=== PATIENT | male | born 1955 | race Caucasian/White ===

== ENCOUNTER → 2017-07-11 14:17 | Outpatient (CLI) | payer BC, SELFPAY ==
[2017-07-24 08:16] LABS: Ami/Nortriptyline NEGATIVE MCG/ML (2); Codeine NEGATIVE MCG/ML (1); Demerol NEGATIVE MCG/ML (2); Hydrocodone NEGATIVE MCG/ML (2); Methadone NEGATIVE MCG/ML (2); Morphine NEGATIVE MCG/ML (0.5); Phenmetrazine NEGATIVE MCG/ML (1)
[2017-07-24 08:17] LABS: Emit Amphetamine NEGATIVE NG/ML (1000); Emit Cocaine NEGATIVE NG/ML (300); Emit Opiate NEGATIVE NG/ML (300); Tramadol NEGATIVE MCG/ML (1)
== END ==
PROVIDERS: Family Provider Family Medicine; PCP Family Medicine; Visit Provider Psychiatry & Neurology Psychiatry
DX: F11.20 Opioid dependence, uncomplicated (principal)
CPT/HCPCS: 80307

== ENCOUNTER 2017-08-02 17:55 | Emergency (ER) | payer BC, SELFPAY ==
[2017-08-02 17:57] VITALS: BP 133/74; PULSE 79; RESP 16; TEMP 36.8; O2SAT 92; BMI 30.5
--- NOTE | 2017-08-02 18:42 | RAD_ITS ---
STUDY: X-RAY - LEFT HAND REASON FOR EXAM: Male, 62 years old. Laceration TECHNIQUE: 3 view(s) of the hand. COMPARISON: None. FINDINGS: Normal radiocarpal articulation. Normal distal radioulnar joint. Normal visualized carpal bones. Normal carpal articulations Normal carpometacarpal articulation of the thumb. Normal second through fifth carpometacarpal joints. Normal metacarpi. Normal metacarpophalangeal joint of the thumb. Normal interphalangeal joint of the thumb. Normal proximal and distal phalanges of the thumb. Normal metacarpophalangeal joints of the second through fifth fingers. Normal proximal and distal interphalangeal joints of the second through fifth fingers. Injury to the base of the third proximal phalanx. Gauze and soft tissue injury dorsum of the hand. RAD/Hand Min 3 Views IMPRESSION: Fracture involving the base of the third proximal phalanx. Soft tissue injury dorsum of the hand at the level of the metacarpal phalangeal joints. Electronically Signed: Warner Zhu DO at 19:21 EDT , Service support ,
[2017-08-02] MEDS: Diphth,Pertuss(Acell),Tet Vac 0.5 ML Vial IM (19:06)
[2017-08-02 19:09] VITALS: BP 146/80; PULSE 69; RESP 15; O2SAT 99
[2017-08-02 19:40] VITALS: BP 141/88; PULSE 71; RESP 18; O2SAT 99
--- NOTE | 2017-08-02 19:41 | ED.RN ---
WET TO DRT DRESSING AND SPLINT APPLIED TO WOUND, REPORT CALLED TO [facility] ED, DAUGHTER IS TRANSPORTING.
--- NOTE | 2017-08-03 02:12 | ED.VISSUMM ---
- ER Visit Summary Date of Service: 08/03/17 Chief Complaint: Left hand injury History of Present Illness: The patient is a 62 M presenting secondary to a left hand injury. 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 Patient's tetanus status is unknown. He denies any other injuries. He is right-hand dominant. Physical Examination: Primary survey: Airway is patent, breath sounds equal bilateral, central peripheral pulses 2+ and symmetric, GCS 15 out of 15. Vitals within normal limits. Secondary survey: General: Well-nourished well-developed no acute distress Head: Normocephalic atraumatic Eyes: PERRLA, EOMI ENT: Atraumatic Neck: Nontender full range of motion, no step-offs noted Heart: Regular rate and rhythm no murmurs Lungs: Respirations nondistressed, lung sounds clear to auscultation bilaterally, chest nontender, normal chest excursion bilaterally Abdomen: Soft nontender nondistended normal bowel sounds no palpable abdominal masses Back: Nontender no step-offs noted Extremities: Examination of the patient's right hand shows a gaping laceration over the dorsum of the patient's hand coursing over the index and long digit metacarpals going out into the long digit proximal phalanx and going down over top of the patient's ring finger. Patient has complete loss of extensor mechanism of his index and long digits. Skin: Normal color no trauma Neuro: Alert and oriented ?4, GCS 15 out of 15, no lateralizing neurological deficits. Test Results: Hand x-ray shows open fracture of the proximal long phalanx Emergency Department Course and Treatment: Patient presented secondary to a hand injury. Primary and secondary surveys as noted above showed only injuries to the patient's left hand. A bulky wet dressing was placed over top of the patient's hand and he was placed in a volar resting splint. Arm was elevated, he did have good hemostasis. Patient's tetanus status was updated. Currently we do not have support from hand surgery at this facility, so the patient will be transferred to a trauma center. Patient chose [facility], will be transferred there by his daughter in private car. Disposition: Transfer Impression: 1. Left hand laceration with open proximal long digit phalanx fracture and extensor tendon lacerations of the index and long digits 2. Volar splint by ED physician Critical care time 35 minutes This note was generated with [employer] dictation software. It may contain incorrect words, spelling, and punctuation that were not noted in review of the chart prior to signing ED Disposition - Plan for ED Patient: Disposition: [facility] Chief Complaint: Wound Referrals: Mahendra Mendez MD [Primary Care Provider] -
--- NOTE | 2017-08-03 02:16 | ED.DCSUM_ITS ---
- ER Visit Summary Date of Service: 08/03/17 Chief Complaint: Left hand injury History of Present Illness: The patient is a 62 M presenting secondary to a left hand injury. 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 Patient's tetanus status is unknown. He denies any other injuries. He is right-hand dominant. Physical Examination: Primary survey: Airway is patent, breath sounds equal bilateral, central peripheral pulses 2+ and symmetric, GCS 15 out of 15. Vitals within normal limits. Secondary survey: General: Well-nourished well-developed no acute distress Head: Normocephalic atraumatic Eyes: PERRLA, EOMI ENT: Atraumatic Neck: Nontender full range of motion, no step-offs noted Heart: Regular rate and rhythm no murmurs Lungs: Respirations nondistressed, lung sounds clear to auscultation bilaterally , chest nontender, normal chest excursion bilaterally Abdomen: Soft nontender nondistended normal bowel sounds no palpable abdominal masses Back: Nontender no step-offs noted Extremities: Examination of the patient's right hand shows a gaping laceration over the dorsum of the patient's hand coursing over the index and long digit metacarpals going out into the long digit proximal phalanx and going down over top of the patient's ring finger. Patient has complete loss of extensor mechanism of his index and long digits. Skin: Normal color no trauma Neuro: Alert and oriented ?4, GCS 15 out of 15, no lateralizing neurological deficits. Test Results: Hand x-ray shows open fracture of the proximal long phalanx Emergency Department Course and Treatment: Patient presented secondary to a hand injury. Primary and secondary surveys as noted above showed only injuries to the patient's left hand. A bulky wet dressing was placed over top of the patient's hand and he was placed in a volar resting splint. Arm was elevated, he did have good hemostasis. Patient's tetanus status was updated. Currently we do not have support from hand surgery at this facility, so the patient will be transferred to a trauma center. Patient chose [facility], will be transferred there by his daughter in private car. Disposition: Transfer Impression: 1. Left hand laceration with open proximal long digit phalanx fracture and extensor tendon lacerations of the index and long digits 2. Volar splint by ED physician Critical care time 35 minutes This note was generated with [employer] dictation software. It may contain incorrect words, spelling, and punctuation that were not noted in review of the chart prior to signing ED Disposition - Plan for ED Patient: Disposition: [facility] Chief Complaint: Wound Referrals: Mahendra Mendez MD [Primary Care Provider] -
== END 2017-08-02 19:57 | disposition short-term general hospital (02) ==
LOC: ED 19:12
PROVIDERS: Emergency Provider Emergency Medicine; Family Provider Family Medicine; PCP Family Medicine
DX: S62.613B Displaced fracture of proximal phalanx of left middle finger, initial encounter for open fracture (principal); S66.321A Laceration of extensor muscle, fascia and tendon of left index finger at wrist and hand level, initial encounter; S66.323A Laceration of extensor muscle, fascia and tendon of left middle finger at wrist and hand level, initial encounter; S61.215A Laceration without foreign body of left ring finger without damage to nail, initial encounter; W31.2XXA Contact with powered woodworking and forming machines, initial encounter; Y93.89 Activity, other specified; Y92.9 Unspecified place or not applicable; Y99.9 Unspecified external cause status; Z23 Encounter for immunization; I25.10 Atherosclerotic heart disease of native coronary artery without angina pectoris; Z79.02 Long term (current) use of antithrombotics/antiplatelets; Z79.82 Long term (current) use of aspirin; Z79.899 Other long term (current) drug therapy
CPT/HCPCS: 73130; 90715; 99284

== ENCOUNTER → 2017-11-08 07:03 | Outpatient (CLI) | payer BC, SELFPAY ==
[2017-11-08 10:56] LABS: AST(SGOT) 18 U/L (15-37); Alanine Aminotransfer ALT/SGPT 23 U/L (16-61); Albumin, Serum 3.8 g/dL (3.2-5.0); Alkaline Phosphatase 64 U/L (45-117); Bilirubin, Direct 0.09 mg/dL (0.00-0.30); Cholesterol 90 mg/dL (200); Globulin 3.2 g/dL (2.2-4.2); High Density Lipoprotein 36 mg/dL; Triglycerides 67 mg/dL; Very Low Density Lipoprotein 13 mg/dL (5-40)
== END ==
PROVIDERS: Family Provider Family Medicine; PCP Family Medicine; Visit Provider Internal Medicine Cardiovascular Disease
DX: E78.5 Hyperlipidemia, unspecified (principal); Z79.899 Other long term (current) drug therapy
CPT/HCPCS: 36415; 80061; 80076

== ENCOUNTER → 2017-11-14 08:56 | Outpatient (CLI) | payer BC, SELFPAY ==
--- NOTE | 2017-11-14 09:01 | RAD_ITS ---
STUDY: X-RAY CHEST REASON FOR EXAM: Male, 62 years old. Noncardiac sternal chest pain. TECHNIQUE: PA and lateral views of the chest. COMPARISON: Comparison is made with prior study dated June 16, 2014. FINDINGS: Hyperinflation. Stable increased markings in the right middle lobe suggestive of scarring. Mild increased markings in the lingular segment of the left upper lobe as well. Scattered calcified old granulomatous disease. There is no demonstrated pleural abnormality. Normal size heart. Normal mediastinum and rigoberto. There is prominence of the pulmonary hilar arteries without peripheral pulmonary vascular congestion, suggesting pulmonary hypertension. Normal visualized aortic arch and descending thoracic aorta. There are mild degenerative changes of the visualized thoracic spine. Normal visualized ribs, clavicles, and shoulders. There is no demonstrated abnormality of the visualized soft tissue structures of the upper abdomen. RAD/Chest PA and Lateral IMPRESSION: Hyperinflation. Prominence of the pulmonary bilaterally. Stable mild increased interstitial markings suggestive bibasilar scarring. Electronically Signed: Keshav Roy MD at 9:24 EDT Tel [phone], Service support ,
== END ==
PROVIDERS: Family Provider Family Medicine; PCP Family Medicine; Visit Provider Family Medicine
DX: R07.89 Other chest pain (principal)
CPT/HCPCS: 71046

== ENCOUNTER → 2017-12-27 07:29 | Outpatient (CLI) | payer BC, SELFPAY ==
[2017-12-27 10:32] LABS: Hematocrit 41.5 % (40-54); Hemoglobin 14.1 g/dl (13.0-16.5); Mean Corpuscular Hgb 31.7 pg (27.0-32.0); Mean Corpuscular Volume 93.3 fL (80-94); Mean Platelet Vol. 10.7 fl (6.2-12.0); Platelet Count 150 K/mm3 (150-450); RBC Distribution Width CV 12.3 % (11.6-14.6); RBC Distribution Width SD 41.3 fl (35.1-43.9); Red Blood Count 4.45 M/mm3 (4.6-6.2); White Blood Count 9.9 K/mm3 (4.4-11.0)
[2017-12-27 10:35] LABS: Scan Indicated on CBC? Y/N NO
[2017-12-27 10:47] LABS: ALB/GLOB Ratio 1.1 RATIO (0.9-2.4); AST(SGOT) 21 U/L (15-37); Alanine Aminotransfer ALT/SGPT 22 U/L (16-61); Albumin, Serum 3.6 g/dL (3.2-5.0); Alkaline Phosphatase 84 U/L (45-117); Anion Gap 9 (5-15); BUN 10 mg/dL (7-18); BUN/Creat Ratio 10.8 RATIO (10-20); CRP 5.73 mg/L (0.0-3.0); Chloride 103 mmol/L (98-107); Creatinine, Serum 0.93 mg/dL (0.70-1.30); EST Glomerular Filtration Rate 87 mL/min (>60); Est Glom Filt Rate - Afr Amer 105 mL/min (>60); Globulin 3.4 g/dL (2.2-4.2); Glucose 109 mg/dL (74-106); Lipase 77 U/L (73-393); Potassium 4.1 mmol/L (3.5-5.1); Sodium Level 139 mmol/L (136-145)
== END ==
PROVIDERS: Family Provider Family Medicine; PCP Family Medicine; Visit Provider Internal Medicine Gastroenterology
DX: R10.9 Unspecified abdominal pain (principal)
CPT/HCPCS: 36415; 80053; 83690; 85027; 86140

== ENCOUNTER → 2017-12-28 14:55 | Outpatient (CLI) | payer BC, SELFPAY ==
--- NOTE | 2017-12-28 15:00 | CT_ITS ---
STUDY: CT ABDOMEN AND PELVIS WITH CONTRAST REASON FOR EXAM: Male, 62 years old. Abdominal pain RADIATION DOSAGE (If Supplied By Facility): CTDIvol = ( 17.36 ) mGy, DLP = ( 1119.43 ) mGycm TECHNIQUE: Transaxial images were obtained from the dome of the diaphragm to the symphysis pubis without oral contrast. 100 ml of Isovue 300 contrast was administered. Sagittal and coronal images were reconstructed. Individualized dose optimization techniques were used for this CT. COMPARISON: None. FINDINGS: The visualized lung bases are clear. The visualized portions of the heart and pericardium are within normal limits. There are no calcified gallstones present. The liver is within normal limits. There are no suspicious hepatic lesions. The spleen is normal in size. There is a 2.9 x 2.9 x 2.7 cm hypodense mass in the tail of the pancreas which is highly suspicious for neoplasm. There is adjacent periportal lymphadenopathy. The right adrenal gland is within normal limits. There is ill-defined thickening of the left adrenal gland which may be due to involvement by the adjacent pancreatic mass. There are no renal or ureteral stones. There is no hydronephrosis. There are no focal renal lesions. Normal visualized stomach. There is no bowel obstruction or inflammation. There is a large amount stool in the colon, consistent with constipation. The appendix is not visualized, but there are no findings to suggest acute appendicitis. The aorta is normal in caliber. There is no abdominal or pelvic free air, free fluid or fluid collection. There are no destructive osseous lesions. There are postsurgical changes from posterior fusion of L5/S1. CT/Abdomen/Pelvis WITH Contrast IMPRESSION: 2.9 x 2.9 x 2.7 cm mass in the tail of the pancreas with adjacent periportal lymphadenopathy. This is highly suspicious for neoplasm. Ill-defined thickening of the left adrenal gland which may be due to neoplastic involvement by the adjacent pancreatic mass. No bowel obstruction or inflammation. Constipation. Electronically Signed: Claude New, at 16:01 EDT Tel , Service support ,
== END ==
PROVIDERS: Family Provider Family Medicine; PCP Family Medicine; Visit Provider Family Medicine
DX: R10.9 Unspecified abdominal pain (principal)
CPT/HCPCS: 74177; Q9967

== ENCOUNTER 2018-02-05 09:42 | Emergency (ER) | payer BC, SELFPAY ==
[2018-02-05 09:43] VITALS: BP 125/73; PULSE 67; RESP 14; TEMP 36.9; O2SAT 100; BMI 28.1
--- NOTE | 2018-02-05 09:58 | ED.VISSUMM ---
- ER Visit Summary Date of Service: 02/05/18 Chief Complaint: Abdominal pain History of Present Illness: The patient is a 62 M with midepigastric abdominal pain. The patient has a recent diagnosis of pancreatic cancer. He did have biopsy but no other abdominal surgery. He states that he started chemo on Monday. by , he began to have some diffuse cramping in his midepigastric area. Over the weekend, the pain is gotten worse. He has had nausea with a few bouts of emesis. He states he is also been constipated. He denies any fevers or chills. The patient is on methadone for his pain, feels like it is not helping. He states he just has no appetite. Pain does not radiate to his back. He denies any dysuria. He has had no cough or shortness of breath. Physical Examination: Vital signs reviewed General: Well-nourished, well-developed Head: Normocephalic, atraumatic Eyes: Pupils equal and reactive, extraocular muscles intact Neck, supple, no lymphadenopathy Heart: Regular rate and rhythm Respiratory: No distress, clear bilaterally Abdomen: Soft, mildly tender in the midepigastric area without rebound or guarding, nondistended, no peritoneal signs Back: Nontender Extremities: Nontender, no edema, no cords Skin: Normal color no rash Neuro: Alert and oriented, no focal or lateralizing deficits Test Results: [] Emergency Department Course and Treatment: The patient presents with increasing abdominal pain status post chemotherapy. Most of his pain was in his midepigastric area. He had no rebound or guarding. IV fluids were given through his port. Screening labs were obtained were relatively unremarkable. The patient is not neutropenic. His LFTs and electrolytes are within normal limits. With analgesics and antiemetics he did have improvement. The patient was observed for 3 hours. He continues to rest comfortably. Is able to drink without issue. At this time, I do for the patient is safe for discharge. He was counseled on concerning symptoms and symptoms return to the emergency department for. I did go over lab work with family at the bedside. He will be discharged to follow-up with oncology or return with any worsening symptoms. Treatment Plan: [] Disposition: Discharge Impression: 1. Epigastric abdominal pain with history of pancreatic cancer 2. Dehydration This note was generated with Dragon dictation software. It may contain incorrect words, spelling, and punctuation that were not noted in review of the chart prior to signing ED Disposition - Plan for ED Patient: Chief Complaint: Abd Pain Instructions: ED Abdominal Pain Unkn Cause Prescriptions: Ondansetron [Zofran Odt] 4 mg PO Q8H PRN PRN #10 tab PRN Reason: Nausea Referrals: Mahendra Mendez MD [Primary Care Provider] -
[2018-02-05 10:29] LABS: Absolute Lymphocyte Count 3.86 X10^3/ul (0.83-4.51); Absolute Neutrophil Count 4.2 X10^3/uL (2.0-7.7); Basophil# 0.01 X10^3/uL; Basophil% 0.1 % (0-1); Eosinophil# 0.02 X10^3/uL; Eosinophils% 0.2 % (0-5); Hematocrit 38.8 % (40-54); Hemoglobin 13.1 g/dl (13.0-16.5); Lymphocyte # 3.86 X10^3/ul (4.0); Lymphocyte % 46.8 % (19-41); Mean Corp Hgb Conc 33.8 g/gl (32-36); Mean Corpuscular Hgb 30.5 pg (27.0-32.0); Mean Corpuscular Volume 90.4 fL (80-94); Mean Platelet Vol. 9.8 fl (6.2-12.0); Monocyte# 0.11 X10^3/uL; Monocyte% 1.3 % (0-10); Neutrophil # 4.24 X10^3/uL (2.7-7.7); Neutrophil % 51.5 % (47-70); Platelet Count 119 K/mm3 (150-450); RBC Distribution Width CV 12.3 % (11.6-14.6); RBC Distribution Width SD 40.5 fl (35.1-43.9); Red Blood Count 4.29 M/mm3 (4.6-6.2); White Blood Count 8.3 K/mm3 (4.4-11.0)
[2018-02-05] MEDS: HYDROmorphone 1 MG/ML Syringe IV ×2 (10:35→11:14)
[2018-02-05] MEDS: 0.9% Normal Saline 1,000 ML 1000 ML IV (10:35)
[2018-02-05] MEDS: Ondansetron 4 MG/2 ML Vial IV (10:35)
[2018-02-05 10:38] LABS: POSITIVE COUNT NO; POSITIVE DIFFERENTIAL NO; POSITIVE MORPHOLOGY NO
[2018-02-05 10:44] LABS: ALB/GLOB Ratio 0.7 RATIO (0.9-2.4); AST(SGOT) 13 U/L (15-37); Alanine Aminotransfer ALT/SGPT 18 U/L (16-61); Albumin, Serum 2.9 g/dL (3.2-5.0); Alkaline Phosphatase 85 U/L (45-117); Anion Gap 7 (5-15); BUN 16 mg/dL (7-18); BUN/Creat Ratio 21.8 RATIO (10-20); Calcium,Total 9.1 mg/dL (8.5-10.1); Chloride 99 mmol/L (98-107); Creatinine, Serum 0.73 mg/dL (0.70-1.30); EST Glomerular Filtration Rate 114 mL/min (>60); Est Glom Filt Rate - Afr Amer 138 mL/min (>60); Estimated Creatinine Clearance 108.88 ml/min; Globulin 4.1 g/dL (2.2-4.2); Glucose 96 mg/dL (74-106); Lipase 180 U/L (73-393); Sodium Level 134 mmol/L (136-145)
[2018-02-05] MEDS: LORazepam 2 MG/ML Syringe 1 MG IV (11:23)
[2018-02-05 13:30] VITALS: BP 134/88; PULSE 76; RESP 18; O2SAT 99
[2018-02-05 14:00] LABS: Color, Urine Yellow (Yellow); Glucose, Dipstick Normal (Normal); Leukocyte Esterase-Dipstick 25 /ul (Negative); Nitrite-Dipstick Negative (Negative); Occult Blood-Urine 10 /ul (Negative); Protein-Dipstick 15 mg/dl (Negative); Specific Gravity, Urine 1.015 (1.002-1.030); Urine Bilirubin Dipstick Negative (Negative); Urine Clarity Sl. Cloudy (Clear); Urine Urobilinogen 1 mg/dl (Normal)
[2018-02-05 14:03] LABS: Ketone-Dipstick 150 mg/dl (Negative)
[2018-02-05 14:13] LABS: Bacteria 1+ /hpf (None Seen); Mucous, Urine 2+ /hpf (<or=2+); Red Blood Cells-Urine 0-5 SEEN /hpf (0-5); Squamous Epithelial Cells - UA 0-5 SEEN /hpf (0-5); White Blood Cells 0-5 SEEN /hpf (0-5)
== END 2018-02-05 13:32 | disposition home or self-care (01) ==
PROVIDERS: Emergency Provider Emergency Medicine; Family Provider Family Medicine; PCP Family Medicine
DX: R10.13 Epigastric pain (principal); E86.0 Dehydration; C25.9 Malignant neoplasm of pancreas, unspecified; R11.2 Nausea with vomiting, unspecified; K59.00 Constipation, unspecified; Z79.899 Other long term (current) drug therapy; Z79.891 Long term (current) use of opiate analgesic
CPT/HCPCS: 80053; 81001; 83690; 85025; 96361; 96374; 96375; 96376; 99282; J7030; A4216; J2405

== ENCOUNTER 2018-02-07 10:10 | Inpatient (IN) | payer BC, SELFPAY ==
[2018-02-07 10:11] VITALS: BP 126/73; PULSE 80; RESP 16; TEMP 36.9; O2SAT 97; BMI 28.1
--- NOTE | 2018-02-07 11:29 | CT_ITS ---
STUDY: CT ABDOMEN AND PELVIS WITHOUT CONTRAST REASON FOR EXAM: Male, 62 years old. Nausea and vomiting. History of pancreatic carcinoma with alcohol and substance abuse. RADIATION DOSAGE (If Supplied By Facility): CTDIvol = ( 8.99 ) mGy, DLP = ( 460.56 ) mGycm TECHNIQUE: Transaxial images were obtained from the dome of the diaphragm to the symphysis pubis without oral contrast, and without intravenous contrast. Sagittal and coronal images were reconstructed. Individualized dose optimization techniques were used for this CT. COMPARISON: Comparison is made with prior study dated December 28, 2017. FINDINGS: Mild degree of the increased markings in the anterior aspect of the lingular segment of the left upper lobe. This most likely scarring. This is unchanged. Coronary artery calcification. Normal liver. The right hemicolon is anterior to the liver. This is a normal variant. Mildly distended gallbladder. Questionable sludge or tiny gallstones in the gallbladder lumen. Mild splenomegaly. There is a 7.3 cm x 7.6 cm x 6.8 cm predominantly cystic mass in the left upper quadrant in the region of the splenic hilum. This most likely represents a possible mass or pseudocyst arising from the pancreas. Inhomogeneous mass in the body of the pancreas essentially unchanged as compared to prior study. There are several small rounded soft tissue densities in the anterior aspect of the pancreatic fat suggestive of possible adenopathy. Normal bilateral adrenal glands. Normal right kidney. Normal left kidney. Normal visualized stomach. Normal small intestine. Moderate amount of fecal material is seen in the colon. The appendix is visualized and appears normal. There is diffuse atherosclerotic calcification of the abdominal aorta, without a demonstrated aneurysm. Normal inferior vena cava. There is borderline retroperitoneal lymphadenopathy with enlarged nodes no greater than 10mm in the short axis diameter. Normal urinary bladder. Normal abdominal wall. The patient is status post laminectomy at the L5-S1 level with interpedicular screw fixation. Stable anterolisthesis of L5 on S1. CT/Abdomen/Pelvis without Cont IMPRESSION: 7.3 cm x 7.6 cm x 6.8 cm predominantly cystic mass in the left upper quadrant most likely arising from the tail of the pancreas. Stable appearance of the soft tissue mass in the body of the pancreas. Questionable peripancreatic lymph nodes. Electronically Signed: Keshav Roy MD at 13:47 EDT Tel [phone], Service support ,
[2018-02-07 11:30] LABS: Absolute Lymphocyte Count 5.56 X10^3/ul (0.83-4.51); Absolute Neutrophil Count 4.5 X10^3/uL (2.0-7.7); Basophil# 0.01 X10^3/uL; Basophil% 0.1 % (0-1); Eosinophil# 0.07 X10^3/uL; Eosinophils% 0.7 % (0-5); Hematocrit 39.2 % (40-54); Hemoglobin 13.3 g/dl (13.0-16.5); Lymphocyte # 5.56 X10^3/ul (4.0); Lymphocyte % 53.4 % (19-41); Mean Corp Hgb Conc 33.9 g/gl (32-36); Mean Corpuscular Hgb 30.3 pg (27.0-32.0); Mean Corpuscular Volume 89.3 fL (80-94); Monocyte# 0.28 X10^3/uL; Monocyte% 2.7 % (0-10); Neutrophil % 43.1 % (47-70); Platelet Count 116 K/mm3 (150-450); RBC Distribution Width CV 12.2 % (11.6-14.6); RBC Distribution Width SD 39.4 fl (35.1-43.9); Red Blood Count 4.39 M/mm3 (4.6-6.2); White Blood Count 10.4 K/mm3 (4.4-11.0)
[2018-02-07] MEDS: 0.9% Normal Saline 1,000 ML 1000 ML IV (11:30)
[2018-02-07] MEDS: proMETHazine 25 MG/ML Syringe 12.5 MG IV (11:30)
[2018-02-07] MEDS: HYDROmorphone 1 MG/ML Syringe IV ×6 (11:30→22:34)
[2018-02-07 11:31] LABS: Differential Indicated SCAN CRITERIA MET; POSITIVE COUNT NO; POSITIVE DIFFERENTIAL YES; POSITIVE MORPHOLOGY NO
[2018-02-07 11:41] LABS: Lactic Acid 0.9 mmol/L (0.4-2.0)
[2018-02-07 11:44] LABS: ALB/GLOB Ratio 0.7 RATIO (0.9-2.4); AST(SGOT) 15 U/L (15-37); Alanine Aminotransfer ALT/SGPT 19 U/L (16-61); Albumin, Serum 2.9 g/dL (3.2-5.0); Alkaline Phosphatase 86 U/L (45-117); Anion Gap 9 (5-15); BUN 18 mg/dL (7-18); BUN/Creat Ratio 27.1 RATIO (10-20); Calcium,Total 9.2 mg/dL (8.5-10.1); Chloride 96 mmol/L (98-107); Creatinine, Serum 0.66 mg/dL (0.70-1.30); EST Glomerular Filtration Rate 128 mL/min (>60); Est Glom Filt Rate - Afr Amer 155 mL/min (>60); Estimated Creatinine Clearance 120.43 ml/min; Globulin 4.3 g/dL (2.2-4.2); Glucose 106 mg/dL (74-106); Lipase 278 U/L (73-393); Potassium 3.7 mmol/L (3.5-5.1); Protein, Total 7.2 g/dL (6.4-8.2); Sodium Level 133 mmol/L (136-145)
[2018-02-07] MEDS: 0.9% Normal Saline 1,000 ML 999 ML IV (12:35)
[2018-02-07 12:37] VITALS: BP 146/85; PULSE 79; RESP 16; O2SAT 97
[2018-02-07 12:53] LABS: Bacteria 0 SEEN /hpf (None Seen); Mucous, Urine 0 SEEN /hpf (<or=2+); Red Blood Cells-Urine 0 SEEN /hpf (0-5)
[2018-02-07 13:00] LABS: Color, Urine Yellow (Yellow); Glucose, Dipstick Normal (Normal); Leukocyte Esterase-Dipstick 25 /ul (Negative); Nitrite-Dipstick Negative (Negative); Occult Blood-Urine 25 /ul (Negative); Protein-Dipstick 15 mg/dl (Negative); Specific Gravity, Urine 1.015 (1.002-1.030); Urine Bilirubin Dipstick Negative (Negative); Urine Clarity Sl. Cloudy (Clear); Urine Urobilinogen 1 mg/dl (Normal)
[2018-02-07 13:06] LABS: Ketone-Dipstick 150 mg/dl (Negative)
[2018-02-07 13:15] LABS: Squamous Epithelial Cells - UA 0-5 SEEN /hpf (0-5); White Blood Cells 0-5 SEEN /hpf (0-5)
--- NOTE | 2018-02-07 14:13 | NURSING ---
MED SURG ABD PAIN, N/V/CA PANCREATITIS RANDAL
--- NOTE | 2018-02-07 14:13 | ED.VISSUMM ---
- ER Visit Summary Date of Service: 02/07/18 Chief Complaint: [Nominal pain with vomiting] History of Present Illness: The patient is a 62 M [presents the emergency department complaint of abdominal pain. Patient states he has not had a good bowel movement in over 2 weeks. Patient is currently being treated for pancreatic cancer and his last chemotherapy was about a week ago. Patient states that every time he tries to eat or drink anything he gets nauseated and vomits. Patient has not eaten or drank much in the last week. Patient generally feels weak and uncomfortable. Denies any fevers. He denies urinary symptoms.] Patient is tried lactulose at home. Patient did see Dr. Childs yesterday and had a nerve block which helped for a short time with his pain. Physical Examination: [HEENT-PERRLA, EOMI. Cranial nerves II through XII grossly intact. TMs clear. Mucous membranes moist. No adenopathy. Cardiovascular-regular rate and rhythm without murmur or ectopy Lungs-clear to auscultation, chest wall stable without crepitus or subcu emphysema Abdomen-normoactive bowel sounds, soft. Patient has diffuse tenderness palpation. There is guarding but no rebound or rigidity. Extremities-intact ?4, normal range of motion, normal pulses, atraumatic] Test Results: [CBC with differential showed a white count of 10.4, hemoglobin 13, hematocrit 39, platelets 116. Chemistries unremarkable. LFTs were normal. Lipase was 278. Urinalysis showed [address] ketones. [address] was 0[address]. [address] scan of the abdomen and pelvis showed a suspected pancreatic pseudocyst and a pancreatic mass with moderate amount of stool throughout the colon.] Emergency Department Course and Treatment: [Patient was medicated with Dilaudid and Zofran. Patient was given 2 L of normal saline. Patient continues to complain of pain.] Treatment Plan: [Admit for IV hydration as well as pain control. Patient will need bowel prep to help him move his bowels..] Disposition: [Admit] Impression: [Intractable abdominal pain Pancreatic cancer Dehydration Constipation] This note was generated with [employer] dictation software. It may contain incorrect words, spelling, and punctuation that were not noted in review of the chart prior to signing ED Disposition - Plan for ED Patient: Chief Complaint: Nausea/Vomiting
--- NOTE | 2018-02-07 14:16 | ED.DCSUM_ITS ---
- ER Visit Summary Date of Service: 02/07/18 Chief Complaint: [Nominal pain with vomiting] History of Present Illness: The patient is a 62 M [presents the emergency department complaint of abdominal pain. Patient states he has not had a good bowel movement in over 2 weeks. Patient is currently being treated for pancreatic cancer and his last chemotherapy was about a week ago. Patient states that every time he tries to eat or drink anything he gets nauseated and vomits. Patient has not eaten or drank much in the last week. Patient generally feels weak and uncomfortable. Denies any fevers. He denies urinary symptoms.] Patient is tried lactulose at home. Patient did see Dr. Childs yesterday and had a nerve block which helped for a short time with his pain. Physical Examination: [HEENT-PERRLA, EOMI. Cranial nerves II through XII grossly intact. TMs clear. Mucous membranes moist. No adenopathy. Cardiovascular-regular rate and rhythm without murmur or ectopy Lungs-clear to auscultation, chest wall stable without crepitus or subcu emphysema Abdomen-normoactive bowel sounds, soft. Patient has diffuse tenderness palpation. There is guarding but no rebound or rigidity. Extremities-intact ?4, normal range of motion, normal pulses, atraumatic] Test Results: [CBC with differential showed a white count of 10.4, hemoglobin 13 , hematocrit 39, platelets 116. Chemistries unremarkable. LFTs were normal. Lipase was 278. Urinalysis showed 150 ketones. [address]actate was 0.[address]. [address] scan of the abdomen and pelvis showed a suspected pancreatic pseudocyst and a pancreatic mass with moderate amount of stool throughout the colon.] Emergency Department Course and Treatment: [Patient was medicated with Dilaudid and Zofran. Patient was given 2 L of normal saline. Patient continues to complain of pain.] Treatment Plan: [Admit for IV hydration as well as pain control. Patient will need bowel prep to help him move his bowels..] Disposition: [Admit] Impression: [Intractable abdominal pain Pancreatic cancer Dehydration Constipation] This note was generated with [employer] dictation software. It may contain incorrect words, spelling, and punctuation that were not noted in review of the chart prior to signing ED Disposition - Plan for ED Patient: Chief Complaint: Nausea/Vomiting
--- NOTE | 2018-02-07 14:30 | PCM.HP.STD ---
Problem List (1) Cancer of pancreas Status: Chronic (2) Pseudopancreatic cyst Status: Acute (3) Hypertension Status: Chronic Qualifiers: Hypertension type: essential hypertension Qualified Code(s): I10 - Essential (primary) hypertension (4) Presence of stent in coronary artery Status: Chronic Comment: PTCA/EDU of the prox LCX 07/07/12 (5) Hyperlipidemia Status: Chronic Qualifiers: Hyperlipidemia type: unspecified Qualified Code(s): E78.5 - Hyperlipidemia, unspecified (6) H/O percutaneous transluminal coronary angioplasty Status: Chronic Comment: PTCA/EDU of the prox LCX 07/07/12 (7) Atherosclerotic heart disease of [place] coronary artery without angina pectoris Status: Chronic Qualifiers: Habematolel vs. transplanted heart: [place] heart Qualified Code(s): I25.10 - Atherosclerotic heart disease of [place] coronary artery without angina pectoris Comment: PTCA/EDU of the prox LCX 07/07/12 (8) Severe abdominal pain; ca pancreatic Status: Acute (9) Chemotherapeutic side effect Status: Acute History of Present Illness Date of Admission: 02/07/18 Chief Complaint: Abdominal pain, nausea and vomiting for about 1 week. The patient is a 62 year old M with recent diagnosis of CA pancreas in May being followed by Dr. Falcon came to ER with severe midepigastric abdominal pain acid with nausea and vomiting for about 1 week. Prior to that, patient had chemo last Monday and his abdominal pain started getting worse since . He came to ER on 02/05/2018 and was sent home after 3 hours of observation and IV fluid rehydration. Patient also did not move his bowel or about 10 days. Denies fever, chills, chest symptoms including shortness of breath, chest pressure or palpitation. He had celiac nerve block by Dr. Yoder recently last few days. In ED, CT abdomen was done and shows 7.3 x 7.6 x 6.8 cm cystic mass in left upper quadrant arising from tail of pancreas suspicion of pseudopancreatic cyst with questionable peripancreatic lymph nodes. Initial blood work is remarkable platelet count 116,000, hyponatremia and hypochloremia. UA is negative. [] Past Medical History Past Medical History (Chronic Problems): Chronic Problems (Last Updated 11/10/17 @ 07:31 by Pennie Espinoza) Cancer of pancreas (Chronic) Hypertension (Chronic) Presence of stent in coronary artery (Chronic ~07/07/12) PTCA/EDU of the prox LCX 07/07/12 Hyperlipidemia (Chronic) H/O percutaneous transluminal coronary angioplasty (Chronic) PTCA/EDU of the prox LCX 07/07/12 Atherosclerotic heart disease of [place] coronary artery without angina pectoris (Chronic) PTCA/EDU of the prox LCX 07/07/12 Medical History: Medical History (Last Updated 11/10/17 @ 07:31 by Pnenie Espinoza) Hypertension (Chronic) I10 Presence of stent in coronary artery (Chronic) Onset Date: ~07/07/12 Z95.5 PTCA/EDU of the prox LCX 07/07/12 Hyperlipidemia (Acute) E78.5 Atherosclerotic heart disease of [place] coronary artery without angina pectoris (Chronic) I25.10 PTCA/EDU of the prox LCX 07/07/12 Allergies No Known Allergies Allergy (Verified 02/07/18 10:13) Home Medications: Ambulatory Orders Medication Instructions Recorded lisinopril 5 mg tablet 5 mg PO QDAY 11/10/17 metoprolol tartrate 25 mg tablet 25 mg PO DAILY tab 11/10/17 pravastatin 80 mg tablet 80 mg PO QHS 11/10/17 testosterone 20.25 mg/1.25 gram 2 pump TOPICAL QAM 11/10/17 (1.62 %) transdermal gel pump venlafaxine ER 150 mg 300 mg PO QDAY 11/10/17 capsule,extended release 24 hr HYDROmorphone tablet [Dilaudid] 2 mg PO Q3H PRN PRN 02/05/18 Methadone HCl [(None)] 10 mg PO DAILY 02/05/18 Gabapentin [Neurontin] 400 mg PO BID 02/07/18 Haloperidol [Haldol] 1 mg PO Q8H PRN PRN 02/07/18 Lactulose 30 ml PO BID 02/07/18 Nitroglycerin [Nitrolingual [place]] 0.4 mg SL PRN PRN 02/07/18 Trazodone HCl 100 mg PO QHS 02/07/18 Surgical History: Surgical History (Last Updated 11/13/17 @ 10:37 by Joann Acsota) H/O percutaneous transluminal coronary angioplasty (Chronic) Z98.61 PTCA/EDU of the prox LCX 02/16/13 History of back surgery Z98.890 History of neck surgery Z98.890 Hx of hand surgery Z98.890 cut hand on band saw Smoking Status: Former smoker - *Family History Paternal Family History: Family History (Last Reviewed 11/13/17 @ 10:37 by Joann Acosta) Father Myocardial infarction, Onset Age: 49 CAD (coronary artery disease) Hx of CABG Mother Hypertension Uncle Myocardial infarction, Onset Age: 50 Brother Diabetes History Items: No pertinent history Review of Systems Constitutional: Reports: Weakness, Weight Change, Fatigue. Denies: Chills, Fever HEENT: Denies: Head Aches, Sinus Congestion, Sinus Drainage Cardiovascular: Denies: Chest Pain, Palpitations Respiratory: Denies: Cough, Shortness of breath at rest, Sputum production Gastrointestinal: Reports: Constipation, Nausea, Vomiting. Denies: Abdominal Pain, Hematemesis, Hematochezia, Melena Genitourinary: Denies: Dysuria Musculoskeletal: Denies: Joint Pain, Joint Tenderness Skin: Denies: Rash, Wounds Neurological: Denies: Numbness, Tingling, Focal weakness Psychiatric: Reports: Anxiety, Depression. Denies: Homicidal Ideations, Suicidal Ideations Hematologic/ Lymphatic: Denies: Easy Bruising, Easy Bleeding VTE Information - Inpt Only VTE Present on Admission: No VTE Mechan Device Prophylaxis: SCD's VTE Pharm Prophylaxis ordered?: Yes Patient Problems: Active and Suspected Problems (Last Updated 11/10/17 @ 07:31 by Pennie Espinoza) Pseudopancreatic cyst (Acute) Severe abdominal pain; ca pancreatic (Acute) Chemotherapeutic side effect (Acute) - Physical Exam General: Alert, Oriented x3, Cooperative HEENT: Atraumatic, PERRLA, EOMI, Normocephalic Oral: Dry Mucosa Neck: Supple, No JVD, Negative Carotid Bruits Lungs: Clear to auscultation, Normal air movement Cardiovascular: Regular rate, Normal S1, Normal S2, No murmurs Abdomen: Bowel Sounds Present, Soft, Hypoactive Bowel Sounds, Tender - Generalized severe tenderness present, predominantly upper abdomen Extremities: No edema, Capillary Refill Less than 3 Seconds Skin: No rashes, No breakdown Musculoskeletal: No Tenderness to Palpation of Joints or Extremities, Arthritic Changes, Muscle Wasting Neurological: Cranial nerves II-XII grossly intact Psych/Mental Status: Normal Affect, Appropriate Vital Signs Temp Pulse Resp BP Pulse Ox 98.5 F 79 16 146/85 H 97 02/07/18 10:11 02/07/18 12:37 02/07/18 12:37 02/07/18 12:37 02/07/18 12:37 Oxygen Delivery Method Room Air Weight: 202 lb Body Mass Index (BMI) 28.1 Laboratory Tests Past 24 Hrs 02/07/18 02/07/18 02/07/18 11:10 11:10 11:10 WBC 10.4 RBC 4.39 L Hgb 13.3 Hct 39.2 L MCV 89.3 MCH 30.3 MCHC 33.9 RDW 12.2 RDW Differential 39.4 Plt Count 116 L MPV 10.0 Immature Gran % (Auto) 0.000 Neut % (Auto) 43.1 L Lymph % (Auto) 53.4 H [place] % (Auto) 2.7 Eos % (Auto) 0.7 Baso % (Auto) 0.1 Absolute Neuts (auto) 4.5 Absolute Lymphs (auto) 5.56 H Total Counted Not Reportable Sodium 133 L Potassium 3.7 Chloride 96 L Carbon Dioxide 28.0 Anion Gap 9 BUN 18 Creatinine 0.66 L Estim Creat Clear Calc 120.43 Est GFR (MDRD) Af Amer 155 Est GFR (MDRD) Non-Af 128 BUN/Creatinine Ratio 27.1 H Glucose 106 Lactic Acid 0.9 Calcium 9.2 Total Bilirubin 0.60 AST 15 ALT 19 Alkaline Phosphatase 86 Total Protein 7.2 Albumin 2.9 L Globulin 4.3 H Albumin/Globulin Ratio 0.7 L Lipase 278 Urine Color Urine Clarity Urine pH Ur Specific [place] Urine Protein Urine Glucose (UA) Urine Ketones Urine Occult Blood Urine Nitrite Urine Bilirubin Urine Urobilinogen Ur Leukocyte Esterase Urine RBC Urine WBC Ur Squamous Epith Cells Urine Bacteria Urine Mucus 02/07/18 12:46 WBC RBC Hgb Hct MCV MCH MCHC RDW RDW Differential Plt Count MPV Immature Gran % (Auto) Neut % (Auto) Lymph % (Auto) [place] % (Auto) Eos % (Auto) Baso % (Auto) Absolute Neuts (auto) Absolute Lymphs (auto) Total Counted Sodium Potassium Chloride Carbon Dioxide Anion Gap BUN Creatinine Estim Creat Clear Calc Est GFR (MDRD) Af Amer Est GFR (MDRD) Non-Af BUN/Creatinine Ratio Glucose Lactic Acid Calcium Total Bilirubin AST ALT Alkaline Phosphatase Total Protein Albumin Globulin Albumin/Globulin Ratio Lipase Urine Color Yellow Urine Clarity Sl. Cloudy Urine pH 7.0 Ur Specific [place] 1.015 Urine Protein 15 H Urine Glucose (UA) Normal Urine Ketones 150 H Urine Occult Blood 25 H Urine Nitrite Negative Urine Bilirubin Negative Urine Urobilinogen 1 H Ur Leukocyte Esterase 25 H Urine RBC 0 SEEN Urine WBC 0-5 SEEN Ur Squamous Epith Cells 0-5 SEEN Urine Bacteria 0 SEEN Urine Mucus 0 SEEN Assessment/Plan All Active Problems (Last Updated 11/10/17 @ 07:31 by Pennie Espinoza) Pseudopancreatic cyst (Acute) Severe abdominal pain; ca pancreatic (Acute) Chemotherapeutic side effect (Acute) The patient is a 62 year old M with recent diagnosis of CA pancreas in May being followed by Dr. Falcon came to ER with severe midepigastric abdominal pain acid with nausea and vomiting for about 1 week. Prior to that, patient had chemo last Monday and his abdominal pain started getting worse since . He came to ER on 02/05/2018 and was sent home after 3 hours of observation and IV fluid rehydration. Patient also did not move his bowel or about 10 days. Denies fever, chills, chest symptoms including shortness of breath, chest pressure or palpitation. He had celiac nerve block by Dr. Yoder recently last few days. He lost 14 pounds in last 2 days. In ED, CT abdomen was done and shows 7.3 x 7.6 x 6.8 cm cystic mass in left upper quadrant arising from tail of pancreas suspicion of pseudopancreatic cyst with questionable peripancreatic lymph nodes. Initial blood work is remarkable platelet count 116,000, hyponatremia and hypochloremia. UA is negative. 1. Severe abdominal pain, nausea and vomiting and constipation most related secondary to chemotherapeutic side effect: Patient is being admitted on the regular MedSurg floor. Venous IV fluid rehydration with normal saline. Symptomatic management for nausea, vomiting and constipation. Dulcolax suppository and soapsuds enema. Pain control with IV Dilaudid. Continue patient home medication of methadone. Started on clear liquid diet and advance as per tolerated. 2. Recent diagnosis of CA pancreas complicated with severe abdominal pain and weight loss: Consult Dr. Falcon for further prognostication. 3. Coronary artery disease status post stent in proximal left circumflex in June 2012, hypertension, anxiety and depression and dyslipidemia: Home medication reconciliation done. Severe protein calorie malnutrition secondary to see a pancreas: Nutritional consult done. Patient on Ensure. DVT prophylaxis, moderate to severe risk in view of cancer pancreas: On Lovenox and bilateral SCDs Admission, labs and imaging and treatment plan was discussed with patient's and her daughter, Ms. Amin. This note was generated with [employer] dictation software. Every effort was made to ensure accuracy, however computerized obstetric assistant mistakes may persist. Clinical Impression(s) from Imaging Studies Abdomen/Pelvis CT 02/07/18 11:29 IMPRESSION: 7.3 cm x 7.6 cm x 6.8 cm predominantly cystic mass in the left upper quadrant most likely arising from the tail of the pancreas. Stable appearance of the soft tissue mass in the body of the pancreas. Questionable peripancreatic lymph nodes. Laboratory Results 02/07/18 11:10: WBC 10.4, RBC 4.39 L, Hgb 13.3, Hct 39.2 L, MCV 89.3, MCH 30.3, MCHC 33.9, RDW 12.2, RDW Differential 39.4, Plt Count 116 L, MPV 10.0, Immature Gran % (Auto) 0.000, Neut % (Auto) 43.1 L, Lymph % (Auto) 53.4 H, [place] % (Auto) 2.7, Eos % (Auto) 0.7, Baso % (Auto) 0.1, Absolute Neuts (auto) 4.5, Absolute Lymphs (auto) 5.56 H, Total Counted Not Reportable 02/07/18 11:10: Sodium 133 L, Potassium 3.7, Chloride 96 L, Carbon Dioxide 28.0, Anion Gap 9, BUN 18, Creatinine 0.66 L, Estim Creat Clear Calc 120.43, Est GFR (MDRD) Af Amer 155, Est GFR (MDRD) Non-Af 128, BUN/Creatinine Ratio 27.1 H, Glucose 106, Calcium 9.2, Total Bilirubin 0.60, AST 15, ALT 19, Alkaline Phosphatase 86, Total Protein 7.2, Albumin 2.9 L, Globulin 4.3 H, Albumin/Globulin Ratio 0.7 L, Lipase 278 02/07/18 11:10: Lactic Acid 0.9 02/07/18 12:46: Urine Color Yellow, Urine Clarity Sl. Cloudy, Urine pH 7.0, Ur Specific [place] 1.015, Urine Protein 15 H, Urine Glucose (UA) Normal, Urine Ketones 150 H, Urine Occult Blood 25 H, Urine Nitrite Negative, Urine Bilirubin Negative, Urine Urobilinogen 1 H, Ur Leukocyte Esterase 25 H, Urine RBC 0 SEEN, Urine WBC 0-5 SEEN, Ur Squamous Epith Cells 0-5 SEEN, Urine Bacteria 0 SEEN, Urine Mucus 0 SEEN [] Code Visit Inpatient E&M: 15960 Init Hosp L3
[2018-02-07 14:39] VITALS: BMI 26.2
[2018-02-07 15:20] VITALS: BP 138/73; PULSE 69; RESP 16; TEMP 37.3; O2SAT 95
[2018-02-07] MEDS: Ondansetron 4 MG/2 ML Vial 8 MG IV (15:23)
[2018-02-07] MEDS: 0.9% Normal Saline 1,000 ML 150 ML IV (15:36)
[2018-02-07 20:03] VITALS: BP 156/78; PULSE 67; RESP 18; TEMP 37; O2SAT 97
[2018-02-07] MEDS: LORazepam 2 MG/ML Syringe 1 MG IV ×2 (20:19→22:34)
[2018-02-08 05:04] VITALS: BP 153/87; PULSE 77; RESP 18; TEMP 36.8; O2SAT 97
[2018-02-08] MEDS: HYDROmorphone 1 MG/ML Syringe IV ×5 (05:28→20:50)
[2018-02-08] MEDS: LORazepam 2 MG/ML Syringe 1 MG IV ×4 (05:28→20:50)
[2018-02-08 05:47] LABS: Absolute Lymphocyte Count 4.93 X10^3/ul (0.83-4.51); Absolute Neutrophil Count 4.1 X10^3/uL (2.0-7.7); Basophil# 0.01 X10^3/uL; Basophil% 0.1 % (0-1); Eosinophil# 0.15 X10^3/uL; Eosinophils% 1.6 % (0-5); Hematocrit 35.8 % (40-54); Hemoglobin 12.4 g/dl (13.0-16.5); Lymphocyte # 4.93 X10^3/ul (4.0); Lymphocyte % 51.4 % (19-41); Mean Corp Hgb Conc 34.6 g/gl (32-36); Mean Corpuscular Hgb 31.1 pg (27.0-32.0); Mean Corpuscular Volume 89.7 fL (80-94); Mean Platelet Vol. 10.4 fl (6.2-12.0); Monocyte# 0.34 X10^3/uL; Monocyte% 3.5 % (0-10); Neutrophil # 4.13 X10^3/uL (2.7-7.7); Neutrophil % 43.1 % (47-70); Platelet Count 106 K/mm3 (150-450); RBC Distribution Width CV 11.8 % (11.6-14.6); RBC Distribution Width SD 38.6 fl (35.1-43.9); Red Blood Count 3.99 M/mm3 (4.6-6.2); White Blood Count 9.6 K/mm3 (4.4-11.0)
[2018-02-08 05:55] LABS: POSITIVE COUNT NO; POSITIVE DIFFERENTIAL NO; POSITIVE MORPHOLOGY NO
[2018-02-08 06:11] LABS: Anion Gap 9 (5-15); BUN 16 mg/dL (7-18); BUN/Creat Ratio 26.2 RATIO (10-20); Calcium,Total 8.9 mg/dL (8.5-10.1); Chloride 102 mmol/L (98-107); Creatinine, Serum 0.61 mg/dL (0.70-1.30); EST Glomerular Filtration Rate 141 mL/min (>60); Est Glom Filt Rate - Afr Amer 171 mL/min (>60); Glucose 84 mg/dL (74-106); Potassium 3.9 mmol/L (3.5-5.1); Sodium Level 137 mmol/L (136-145)
[2018-02-08 09:00] VITALS: BP 157/80; PULSE 77; RESP 16; TEMP 36.4; O2SAT 96
[2018-02-08] MEDS: 0.9% NaCl Peripheral Flush Adult/Peds IV ×3 (10:46→18:00)
[2018-02-08] MEDS: Bisacodyl 10 MG Suppository RECTAL (10:48)
[2018-02-08] MEDS: 0.9% Normal Saline 1,000 ML 125 ML IV ×2 (11:01→18:04)
--- NOTE | 2018-02-08 11:05 | PCA ---
melina/rn in with pt
--- NOTE | 2018-02-08 13:32 | NURSING ---
Addendum entered by Estephania Dominique 02/08/18 16:07: Dr. French notified of daughter Dhiraj's request. Dr. French asked what patient wants and accompanied this RN into room to discuss this with patient. No family was present at the time. Patient stated that he wants to keeps meds how they are ordered and not decrease dose. Notified that family is concerned that they believe he is sleeping too much. Pt denies and stated he wanted meds to be kept as they are. A short while later patient requested prn pain medication. This RN entered room and asked pt if he needed anything for anxiety or nausea. patient states that he wanted the same meds that he had this morning. He states they help him deal with the pain so that he can relax. This RN went to get Ativan. Upon return to room patient's in room and had daughter dhiraj on phone. She gave phone to patient per Dhiraj's request and stated that he was getting to much anxiety medication and that he needed to cut back. Patient rolled eyes and stated, yes, miss, yes, miss, whatever you say. Patient then asked if he would like the ordered 1mg or if he would like the 0.5mg. Patient stated, I guess I want the half dose. 0.5mg given per pt request. Family had been notified that order for ativan was 1mg q2h prn but that patient was not receiving medication q2hr. Understanding verbalized by daughter dhiraj, pt's and pt. and daughter notified that 0.5mg given. then left room to talk in private with vilma Long. Original Note: Addendum entered by Estephania Dominique 02/08/18 13:42: DONOVAN Long spoke with this nurse via telephone and requesting that prn ativan be changed to 0.5mg q6h prn instead of current 1mg q2h prn. States pt is too lethargic and unable to do daily tasks. Doctor to be notified of request. Dhiraj also states that she would like to have Dr. Falcon aware that they are requesting to have pt on TPN for a few weeks due to his high functioning in order to enhance his quality of life for the next few weeks. Also notes that pt could probably benefit from home CAD pump that could be connected to his port. Original Note: Family members notified this RN that Dhiraj, oldest daughter to patient, is requesting to speak this RN- call placed per request.
--- NOTE | 2018-02-08 14:20 | CASEMGMT ---
SEE VANESSA BISHOP ASSESS LINK: D/C PLAN: HOME Pt initially had his eyes open when VANESSA BISHOP introduced self and role to VANESSA BISHOP and stated was willing to participate in assess, but then closed his eyes while questions being asked and appeared to have fallen asleep. Spoke with pt's and she was able to answer questions. -Pt lives at home with his and states he was independent with ambulation, required no DME use prior to admission, and denies needs for pt on discharge. Pharmacy, PCP, and demographics verified. -Asked if pt has HPOA and if she would like to speak with SW about this, stated, our daughter is taking care of everything. - states that pt has never used HHC agency and that he garay not need HHC on discharge or any other assistance. CM to follow for any discharge planning needs that may arise. Miranda HERNANDEZ RN, CM
[2018-02-08 15:29] VITALS: BP 168/91; PULSE 84; RESP 16; TEMP 36.6; O2SAT 98
[2018-02-08] MEDS: Ondansetron 4 MG/2 ML Vial 8 MG IV (18:00)
--- NOTE | 2018-02-08 19:20 | PN_ITS ---
Patient Problems: Active and Suspected Problems (Last Updated 11/10/17 @ 07:31 by Pennie Espinoza ) Severe abdominal pain; ca pancreatic (Acute) Chemotherapeutic side effect (Acute) Subjective: She was seen and examined today, he was still complaining of generalized abdominal pain, I talked briefly with his family also who is in the room. Patient's daughter called in by phone and requested that the patient's Ativan be decreased, I went to the patient and ask him whether he wanted this done and he said no-patient appeared to respond appropriately to my question. I also talked with his oncologist by phone today, patient will have a celiac block done tomorrow by pain management and oncology is hopeful the patient will be able to eat and have less abdominal pain. Patient has very poor intake today, I start IV fluids on him this morning. - Physical Exam General: Alert, Oriented x3, Cooperative, Well developed HEENT: Atraumatic, PERRLA, EOMI, Normocephalic Oral: Moist Mucosa Neck: Supple, No Nuchal Rigidity, Trachea Midline, Thyroid Normal Size and Texture Lungs: Clear to auscultation, Normal air movement, No rhonchi, No wheeze, No rales Cardiovascular: Regular rate, Regular Rhythm, Normal S1, Normal S2, No murmurs, No Ectopic Activity Abdomen: Bowel Sounds Present, Soft, Non Tender, Hypoactive Bowel Sounds, No hernias noted Extremities: No clubbing, No cyanosis, No edema, Capillary Refill Less than 3 Seconds Skin: No rashes, No breakdown Musculoskeletal: No Tenderness to Palpation of Joints or Extremities Neurological: Cranial nerves II-XII grossly intact, Neuro grossly intact, Sensory exam intact to light touch and pain, Coordination normal Psych/Mental Status: Normal Affect, Appropriate, Alert and oriented to time, place, person, mood and affect Vital Signs Temp Pulse Resp BP Pulse Ox 97.9 F 84 16 168/91 H 98 02/08/18 15:29 02/08/18 15:29 02/08/18 15:29 02/08/18 15:29 02/08/18 15:29 Oxygen Delivery Method Room Air Weight: 85.275 kg Body Mass Index (BMI) 26.2 Intake and Output for Last 24 Hours 02/06/18 02/07/18 02/08/18 23:59 23:59 23:59 Intake Total 350 / 350 1703 / 1703 Output Total 275 / 275 Balance 350 / 350 1428 / 1428 Laboratory Tests Past 24 Hrs 02/08/18 02/08/18 05:17 05:17 WBC 9.6 RBC 3.99 L Hgb 12.4 L Hct 35.8 L MCV 89.7 MCH 31.1 MCHC 34.6 RDW 11.8 RDW Differential 38.6 Plt Count 106 L MPV 10.4 Immature Gran % (Auto) 0.300 Neut % (Auto) 43.1 L Lymph % (Auto) 51.4 H [place] % (Auto) 3.5 Eos % (Auto) 1.6 Baso % (Auto) 0.1 Absolute Neuts (auto) 4.1 Absolute Lymphs (auto) 4.93 H Total Counted Not Reportable Sodium 137 Potassium 3.9 Chloride 102 Carbon Dioxide 26.0 Anion Gap 9 BUN 16 Creatinine 0.61 L Estim Creat Clear Calc 130.30 Est GFR (MDRD) Af Amer 171 Est GFR (MDRD) Non-Af 141 BUN/Creatinine Ratio 26.2 H Glucose 84 Calcium 8.9 Medical Necessity - Tobacco Use Smoking Status: Former smoker Tobacco Use: Pipe Assessment/Plan All Active Problems (Last Updated 11/10/17 @ 07:31 by Pennie Espinoza) Severe abdominal pain; ca pancreatic (Acute) Chemotherapeutic side effect (Acute) #1 uncontrolled abdominal pain secondary to metastatic pancreatic cancer- patient will have a nerve block tomorrow by pain management, continue to administer IV pain medicine as needed #2 nausea and vomiting-resolved at this time, possibly secondary to severe pain from pancreatic cancer, continue IV fluids #3 coronary artery disease-stable at this time #4 severe malnutrition-nutritional services is seeing patient #5 hypertension #6 hyperlipidemia Code Visit Inpatient E&M: 75630 Subs Hosp L2
[2018-02-08 20:00] VITALS: BP 155/82; PULSE 82; RESP 16; TEMP 37.5; O2SAT 98
[2018-02-08] MEDS: proMETHazine 25 MG/ML Syringe 12.5 MG IV (20:51)
[2018-02-08 23:00] VITALS: PULSE 82
[2018-02-09] VITALS (12 sets, daily range): BP systolic 133–165; BP diastolic 73–97; PULSE 73–92; RESP 14–16; TEMP 36.4–37.3; O2SAT 95–100; BMI 26.3
[2018-02-09] MEDS: 0.9% Normal Saline 1,000 ML 125 ML IV ×3 (02:07→18:38)
[2018-02-09] MEDS: Ondansetron 4 MG/2 ML Vial 8 MG IV ×3 (02:16→19:35)
[2018-02-09] MEDS: HYDROmorphone 1 MG/ML Syringe IV ×7 (02:20→23:16)
[2018-02-09] MEDS: LORazepam 2 MG/ML Syringe 1 MG IV ×2 (02:23→04:44)
[2018-02-09] MEDS: Venlafaxine XR 150 MG Capsule 300 MG PO (08:13)
[2018-02-09] MEDS: Lactulose 20 GM/30 ML UDC PO (08:13)
[2018-02-09] MEDS: Gabapentin 400 MG Capsule PO ×2 (08:14→20:54)
[2018-02-09] MEDS: Metoprolol Tartrate 25 MG Tablet PO (08:14)
[2018-02-09] MEDS: Famotidine 20 MG Tablet PO ×2 (08:14→20:54)
[2018-02-09] MEDS: Senna/Docusate Sodium 1 Tablet 2 TABLET PO ×2 (08:15→20:54)
[2018-02-09] MEDS: Lisinopril 5 MG Tablet PO (08:15)
[2018-02-09] MEDS: Bisacodyl 10 MG Suppository RECTAL (08:15)
[2018-02-09] MEDS: Methadone 10 MG Tablet PO (08:19)
[2018-02-09] MEDS: LORazepam 2 MG/ML Syringe 0.5 MG IV ×2 (11:06→19:34)
[2018-02-09] MEDS: 0.9% NaCl Peripheral Flush Adult/Peds IV ×5 (11:06→19:35)
--- NOTE | 2018-02-09 12:14 | EKG12_ITS ---
Test Reason : PREOP Blood Pressure : / mmHG Vent. Rate : 095 BPM Atrial Rate : 095 BPM P-R Int : 134 ms QRS Dur : 086 ms QT Int : 358 ms P-R-T Axes : 043 032 031 degrees QTc Int : 449 ms Sinus rhythm with Premature atrial complexes Nonspecific ST and T wave abnormality Abnormal ECG When compared with ECG of 13-FEB-2007 06:23, MANUAL COMPARISON REQUIRED, DATA IS UNCONFIRMED Confirmed by CURLY SANTOS, LEÓN ([id number]), purchasing expeditor ALVINA GRAY ([id number] on 02/20/2018 2:58:28 PM Referred By: PATI Confirmed By:LEÓN RAWLS MD
--- NOTE | 2018-02-09 12:50 | RAD_ITS ---
STUDY: X-RAY CHEST REASON FOR EXAM: Male, 62 years old. Preoperative evaluation. Abdominal pain. Pancreatic carcinoma. TECHNIQUE: Single AP portable view of the chest. COMPARISON: Comparison is made with prior study dated November 14, 2017. FINDINGS: A right-sided portacatheter is seen with the tip at the junction of the superior vena cava and right atrium. Mild elevation of the right hemidiaphragm. Stable increased markings in the left lower lobe suggestive of scarring. No acute infiltrate is seen. There is no demonstrated pleural abnormality. Normal size heart. Normal mediastinum and rigoberto. Normal visualized pulmonary arteries. There is atherosclerotic calcification of the aortic arch with tortuosity. Normal visualized thoracic spine. Normal visualized ribs, clavicles, and shoulders. There is no demonstrated abnormality of the visualized soft tissue structures of the upper abdomen. RAD/Chest 1 View IMPRESSION: Increased markings at the left lung base suggestive of scarring Electronically Signed: Keshav Roy MD at 13:24 EDT Tel [phone], Service support ,
[2018-02-09 12:58] LABS: Absolute Lymphocyte Count 4.68 X10^3/ul (0.83-4.51); Absolute Neutrophil Count 3.4 X10^3/uL (2.0-7.7); Basophil# 0.01 X10^3/uL; Basophil% 0.1 % (0-1); Eosinophil# 0.08 X10^3/uL; Eosinophils% 0.9 % (0-5); Hematocrit 37.2 % (40-54); Hemoglobin 12.9 g/dl (13.0-16.5); Lymphocyte # 4.68 X10^3/ul (4.0); Lymphocyte % 55.5 % (19-41); Mean Corp Hgb Conc 34.7 g/gl (32-36); Mean Corpuscular Hgb 30.7 pg (27.0-32.0); Mean Corpuscular Volume 88.6 fL (80-94); Mean Platelet Vol. 9.8 fl (6.2-12.0); Monocyte# 0.31 X10^3/uL; Monocyte% 3.7 % (0-10); Neutrophil # 3.35 X10^3/uL (2.7-7.7); Neutrophil % 39.7 % (47-70); Platelet Count 111 K/mm3 (150-450); RBC Distribution Width CV 11.9 % (11.6-14.6); White Blood Count 8.4 K/mm3 (4.4-11.0)
[2018-02-09 12:59] LABS: POSITIVE COUNT NO; POSITIVE DIFFERENTIAL NO; POSITIVE MORPHOLOGY NO
[2018-02-09 13:11] LABS: Anion Gap 9 (5-15); BUN 14 mg/dL (7-18); BUN/Creat Ratio 21.9 RATIO (10-20); Calcium,Total 8.8 mg/dL (8.5-10.1); Chloride 104 mmol/L (98-107); Creatinine, Serum 0.64 mg/dL (0.70-1.30); EST Glomerular Filtration Rate 134 mL/min (>60); Est Glom Filt Rate - Afr Amer 162 mL/min (>60); Estimated Creatinine Clearance 124.19 ml/min; Glucose 99 mg/dL (74-106); Potassium 3.8 mmol/L (3.5-5.1); Sodium Level 135 mmol/L (136-145)
--- NOTE | 2018-02-09 16:05 | RAD_ITS ---
Fluoroscopic guidance for celiac plexus block INDICATION: Pancreatic cancer TECHNIQUE: 7 fluoroscopic images, 35.2 seconds of fluoroscopy time. FINDINGS: 7 fluoroscopic images demonstrate placement of a needle over the upper lumbar spine level with injection of contrast. RAD/Fluor Guidance for Spine Inj IMPRESSION: Fluoroscopic guidance for celiac plexus block. Please see procedural report. Limited diagnostic information. Electronically Signed: Aman Wright MD at 16:02 EDT , Service support ,
--- NOTE | 2018-02-09 19:27 | PCM.PROGNOTE ---
Patient Problems: Active and Suspected Problems (Last Updated 11/10/17 @ 07:31 by Pennie Espinoza) Severe abdominal pain; ca pancreatic (Acute) Chemotherapeutic side effect (Acute) Subjective: Patient seen and examined tonight, he had a celiac block performed today, patient states that he still is in a great deal pain although he appears to be sleepy. Patient's family is in the room, I told the patient to be sure and asked for more pain medications if he needed it and it would be administered tonight. - Physical Exam General: Alert, Oriented x3, Cooperative, - - Patient appears to be in moderate distress due to abdominal pain HEENT: Atraumatic, PERRLA, EOMI, Normocephalic Oral: Moist Mucosa Neck: Supple, No Nuchal Rigidity, Trachea Midline Lungs: Clear to auscultation, Normal air movement, No rhonchi, No wheeze, No rales Cardiovascular: Regular rate, Regular Rhythm, Normal S1, Normal S2, No murmurs, PMI Normal Abdomen: Bowel Sounds Present, Soft, Non Tender, Hypoactive Bowel Sounds Extremities: No clubbing, No cyanosis, No edema Skin: No rashes, No breakdown Musculoskeletal: No Tenderness to Palpation of Joints or Extremities Neurological: Cranial nerves II-XII grossly intact, Neuro grossly intact, Sensory exam intact to light touch and pain Psych/Mental Status: Normal Affect, Appropriate, Alert and oriented to time, place, person, mood and affect Vital Signs Temp Pulse Resp BP Pulse Ox 98.4 F 73 14 164/77 H 97 02/09/18 16:44 02/09/18 16:44 02/09/18 16:44 02/09/18 16:44 02/09/18 16:44 Oxygen Delivery Method Room Air Weight: 85.275 kg Body Mass Index (BMI) 26.3 Intake and Output for Last 24 Hours 02/07/18 02/08/18 02/09/18 23:59 23:59 23:59 Intake Total 350 / 350 1703 / 1703 2971 / 2971 Output Total 275 / 275 Balance 350 / 350 1428 / 1428 2971 / 2971 Laboratory Tests Past 24 Hrs 02/09/18 02/09/18 12:45 12:45 WBC 8.4 RBC 4.20 L Hgb 12.9 L Hct 37.2 L MCV 88.6 MCH 30.7 MCHC 34.7 RDW 11.9 RDW Differential 38.0 Plt Count 111 L MPV 9.8 Immature Gran % (Auto) 0.100 Neut % (Auto) 39.7 L Lymph % (Auto) 55.5 H [place] % (Auto) 3.7 Eos % (Auto) 0.9 Baso % (Auto) 0.1 Absolute Neuts (auto) 3.4 Absolute Lymphs (auto) 4.68 H Total Counted Not Reportable Sodium 135 L Potassium 3.8 Chloride 104 Carbon Dioxide 22.0 Anion Gap 9 BUN 14 Creatinine 0.64 L Estim Creat Clear Calc 124.19 Est GFR (MDRD) Af Amer 162 Est GFR (MDRD) Non-Af 134 BUN/Creatinine Ratio 21.9 H Glucose 99 Calcium 8.8 Medical Necessity - Tobacco Use Smoking Status: Former smoker Tobacco Use: Pipe Assessment/Plan All Active Problems (Last Updated 11/10/17 @ 07:31 by Pennie Espinoza) Severe abdominal pain; ca pancreatic (Acute) Chemotherapeutic side effect (Acute) #1 uncontrolled abdominal pain secondary to metastatic pancreatic cancer-patient will be reevaluated tomorrow concerning his pain, in the meantime, patient will remain on IV Dilaudid for pain. I made night nursing aware that the patient may need additional pain meds and for them to contact the night hospitalist for this. #2 nausea and vomiting-resolved at this time, possibly secondary to severe pain from pancreatic cancer, continue IV fluids #3 coronary artery disease-stable at this time #4 severe malnutrition-nutritional services is seeing patient #5 hypertension #6 hyperlipidemia Code Visit Inpatient E&M: 10488 Subs Hosp L2
[2018-02-09] MEDS: traZODone 100 MG Tablet PO (20:54)
[2018-02-09] MEDS: Pravastatin 80 MG Tablet PO (20:54)
[2018-02-09] MEDS: proMETHazine 25 MG/ML Syringe 12.5 MG IV (21:01)
[2018-02-10] MEDS: Zolpidem Tartrate 5 MG Tablet PO (00:36)
[2018-02-10] MEDS: oxyCODONE 5 MG Tablet 10 MG PO ×4 (01:10→16:47)
[2018-02-10] MEDS: 0.9% Normal Saline 1,000 ML 125 ML IV ×2 (01:14→16:46)
[2018-02-10 01:17] VITALS: BP 159/83; PULSE 58; RESP 16; TEMP 36.9; O2SAT 98
[2018-02-10] MEDS: HYDROmorphone 1 MG/ML Syringe IV ×6 (02:37→20:27)
--- NOTE | 2018-02-10 02:43 | NURSING ---
Pt. calling out for pain medication every 1-2 hours. New Pain meds ordered for breakthrough pain. oxyir 10 mg Q4hr PRN and scheduled methadone changed from once a day to 5 mg TID. Patient admits that the 0110 doses of Oxir and Methadone helped a little bit but is still rating pain 7/10. 1mg Dilaudid given. Will continue to monitor.
[2018-02-10] MEDS: proMETHazine 25 MG/ML Syringe 12.5 MG IV (05:14)
[2018-02-10 05:19] VITALS: BP 139/87; PULSE 86; RESP 16; TEMP 36.8; O2SAT 97
[2018-02-10 09:00] VITALS: BP 140/88; PULSE 85; RESP 20; TEMP 36.6; O2SAT 96
--- NOTE | 2018-02-10 09:16 | PCM.PN.BLA ---
Progress Note Oncology Consult Progress Note: Feeling Better, but still has neuropathic pain when moving or taking a deep breathe. Celiac block yesterday with Dr. Yoder. No BM since yesterday No N/V IMPRESSION/PLAN: 1) Pain from pancreatic CA -Increase Neurontin 400mg TID -> 600mg TID if needed - Continue Methodone & Effexor XL - Follow up with pain management 2) Constipation 2/2 above. - Lactulose daily prn - Continue Senokot S twice daily & Ducolax Supp. daily 3) Panreatic CA - Follow up with Dr. Falcon next week - Possible d/c today. cc: Dr. Lj Falcon
[2018-02-10] MEDS: 0.9% NaCl Peripheral Flush Adult/Peds IV (09:17)
[2018-02-10 09:27] VITALS: BP 140/88; PULSE 85
[2018-02-10] MEDS: Venlafaxine XR 150 MG Capsule 300 MG PO (09:27)
[2018-02-10] MEDS: Metoprolol Tartrate 25 MG Tablet PO (09:27)
[2018-02-10] MEDS: Senna/Docusate Sodium 1 Tablet 2 TABLET PO ×2 (09:28→21:34)
[2018-02-10] MEDS: Gabapentin 400 MG Capsule PO ×2 (09:28→21:35)
[2018-02-10] MEDS: Famotidine 20 MG Tablet PO ×2 (09:28→21:34)
[2018-02-10] MEDS: Lisinopril 5 MG Tablet PO (09:28)
[2018-02-10 15:40] VITALS: BP 125/83; PULSE 103; RESP 16; TEMP 36.9; O2SAT 97
--- NOTE | 2018-02-10 16:29 | PN_ITS ---
Patient Problems: Active and Suspected Problems (Last Updated 11/10/17 @ 07:31 by Pennie Espinoza ) Severe abdominal pain; ca pancreatic (Acute) Chemotherapeutic side effect (Acute) Subjective: Patient seen and examined today, he appears to be more comfortable today, family member was in the room and requested palliative care be contacted tomorrow if the patient is going to be discharged so that they could see him as an outpatient. Daughter also requested that the patient's methadone be increased if possible and the patient is in agreement with this so I have increased the patient's methadone to 10 mg 3 times a day. I talked with today concerning the patient, he increase the patient's Neurontin because he feels the patient's pain is mainly neuropathic. - Physical Exam General: Alert, Oriented x3, Cooperative, No apparent distress, Well developed, Well nourished HEENT: Atraumatic, PERRLA, EOMI, Normocephalic Oral: Moist Mucosa Neck: Supple, No Nuchal Rigidity, Trachea Midline Lungs: Clear to auscultation, Normal air movement, No rhonchi, No wheeze, No rales Cardiovascular: Regular rate, Regular Rhythm, Normal S1, Normal S2, No murmurs, No Ectopic Activity, PMI Normal, No rub noted Abdomen: Bowel Sounds Present, Soft, Non Tender, Non-Distended Extremities: No clubbing, No cyanosis, No edema, Capillary Refill Less than 3 Seconds Skin: No rashes, No breakdown Musculoskeletal: No Tenderness to Palpation of Joints or Extremities Neurological: Cranial nerves II-XII grossly intact, Neuro grossly intact, Sensory exam intact to light touch and pain, Coordination normal Psych/Mental Status: Normal Affect, Appropriate, Alert and oriented to time, place, person, mood and affect Vital Signs Temp Pulse Resp BP Pulse Ox 98.4 F 103 H 16 125/83 H 97 02/10/18 15:40 02/10/18 15:40 02/10/18 15:40 02/10/18 15:40 02/10/18 15:40 Oxygen Delivery Method Room Air Weight: 85.275 kg Body Mass Index (BMI) 26.3 Intake and Output for Last 24 Hours 02/08/18 02/09/18 02/10/18 23:59 23:59 23:59 Intake Total 1703 / 1703 4268 / 4268 1768 / 1768 Output Total 275 / 275 Balance 1428 / 1428 4268 / 4268 1767 Medical Necessity - Tobacco Use Smoking Status: Former smoker Tobacco Use: Pipe Assessment/Plan All Active Problems (Last Updated 11/10/17 @ 07:31 by Pennie Espinoza) Severe abdominal pain; ca pancreatic (Acute) Chemotherapeutic side effect (Acute) #1 uncontrolled abdominal pain secondary to metastatic pancreatic cancer- his pain today seems to be in better control, I will increase patient's methadone, oncology increase the patient's Neurontin. I will advance patient's diet today and reevaluate him tomorrow. #2 nausea and vomiting-resolved at this time, possibly secondary to severe pain from pancreatic cancer, continue IV fluids but advance diet now #3 coronary artery disease-stable at this time #4 severe malnutrition-nutritional services is seeing patient #5 hypertension #6 hyperlipidemia Code Visit Inpatient E&M: 54957 Subs Hosp L2
[2018-02-10 20:00] VITALS: BP 136/83; PULSE 74; RESP 18; TEMP 36.9; O2SAT 97
[2018-02-10] MEDS: Lactulose 20 GM/30 ML UDC 30 GM PO (21:34)
[2018-02-10] MEDS: traZODone 100 MG Tablet PO (21:34)
[2018-02-10] MEDS: Pravastatin 80 MG Tablet PO (21:36)
[2018-02-11 02:57] VITALS: BP 157/89; PULSE 80; RESP 18; TEMP 36.8; O2SAT 97
[2018-02-11] MEDS: 0.9% Normal Saline 1,000 ML 125 ML IV ×3 (03:45→17:53)
[2018-02-11] MEDS: HYDROmorphone 1 MG/ML Syringe IV ×5 (05:50→20:38)
[2018-02-11] MEDS: oxyCODONE 5 MG Tablet 10 MG PO ×3 (06:34→15:31)
[2018-02-11] MEDS: LORazepam 2 MG/ML Syringe 0.5 MG IV ×2 (06:38→18:00)
--- NOTE | 2018-02-11 08:25 | PCM.PN.BLA ---
Progress Note Oncology consult progress note: Patient still having neuropathic pain along with poor appetite and anorexia which started after his first course of chemotherapy. His pain is down to 4 out of 10 with neuropathic component which go up to 8 out of 10. He has no increased confusion, lethargy or dizziness with increased dose of Neurontin. He denied nausea, vomiting, or constipation. IMPRESSION/PLAN: 1) Pain from pancreatic CA -Increase Neurontin 600mg TID - Continue Methodone & Effexor XL - Follow up with pain management 2) Constipation 2/2 above. - Lactulose daily prn - Continue Senokot S twice daily & Ducolax Supp. daily 3) Anorexia and weight loss secondary to above -Consider starting Megace 400mg - 800mg nightly for appetite stimulant 4) Panreatic CA - Follow up with Dr. Falcon next week to resume palliative chemotherapy - Possible d/c today. cc: Dr. Lj Falcon; Dr. Jose Márquez
[2018-02-11] MEDS: 0.9% NaCl Peripheral Flush Adult/Peds IV ×3 (08:35→17:51)
[2018-02-11 08:41] VITALS: BP 121/87; PULSE 106; RESP 20; TEMP 36.8; O2SAT 98
[2018-02-11 08:50] VITALS: PULSE 106
[2018-02-11] MEDS: Metoprolol Tartrate 25 MG Tablet PO (08:50)
[2018-02-11] MEDS: Famotidine 20 MG Tablet PO ×2 (08:51→22:44)
[2018-02-11] MEDS: Venlafaxine XR 150 MG Capsule 300 MG PO (08:52)
[2018-02-11] MEDS: Senna/Docusate Sodium 1 Tablet 2 TABLET PO ×2 (08:52→22:44)
[2018-02-11] MEDS: Lisinopril 5 MG Tablet PO (08:52)
[2018-02-11] MEDS: Gabapentin 600 MG Tablet PO ×3 (09:27→17:50)
[2018-02-11] MEDS: Lactulose 20 GM/30 ML UDC 30 GM PO (10:41)
--- NOTE | 2018-02-11 17:53 | PCM.PROGNOTE ---
Patient Problems: Active and Suspected Problems (Last Updated 11/10/17 @ 07:31 by Pennie Espinoza) Severe abdominal pain; ca pancreatic (Acute) Chemotherapeutic side effect (Acute) Subjective: Patient was seen and examined today, I briefly talked about his medical care with oncology today. Patient went almost the entire day so far without using IV Dilaudid but late this afternoon he had to be given IV Dilaudid due to his abdominal pain. Patient was reluctant to go home and I felt that it was better to keep the patient here and increase the patient's methadone, oncology increase the patient's Neurontin today. - Physical Exam General: Alert, Oriented x3, Cooperative, - - Patient is in moderate distress due to abdominal pain HEENT: Atraumatic, PERRLA, EOMI, Normocephalic Oral: Moist Mucosa Neck: Supple, No Nuchal Rigidity, Trachea Midline, Thyroid Normal Size and Texture Lungs: Clear to auscultation, Normal air movement, No rhonchi, No wheeze, No rales Cardiovascular: Regular rate, Regular Rhythm, Normal S1, Normal S2, No murmurs, PMI Normal, No rub noted, No Gallop Abdomen: Tender - Diffuse abdominal tenderness is noted chiefly over the mid abdomen Extremities: No clubbing, No cyanosis, No edema Skin: No rashes, No breakdown Neurological: Cranial nerves II-XII grossly intact, Neuro grossly intact, Sensory exam intact to light touch and pain, Coordination normal Psych/Mental Status: Appropriate, Alert and oriented to time, place, person, mood and affect Vital Signs Temp Pulse Resp BP Pulse Ox 98.2 F 106 H 20 H 121/87 H 98 02/11/18 08:41 02/11/18 08:50 02/11/18 08:41 02/11/18 08:41 02/11/18 08:41 Oxygen Delivery Method Room Air Weight: 85.275 kg Body Mass Index (BMI) 26.3 Intake and Output for Last 24 Hours 02/09/18 02/10/18 02/11/18 23:59 23:59 23:59 Intake Total 6764 / 4268 2812 / 2812 2602 / 2602 Balance 4268 / 4268 2812 / 2812 2602 / 2602 Medical Necessity - Tobacco Use Smoking Status: Former smoker Tobacco Use: Pipe Assessment/Plan All Active Problems (Last Updated 11/10/17 @ 07:31 by Pennie Espinoza) Severe abdominal pain; ca pancreatic (Acute) Chemotherapeutic side effect (Acute) #1 uncontrolled abdominal pain secondary to metastatic pancreatic cancer-patient's methadone will be increased, his Neurontin was increased by oncology, I will reevaluate patient tomorrow #2 nausea and vomiting-resolved at this time, possibly secondary to severe pain from pancreatic cancer, continue IV fluids #3 coronary artery disease-stable at this time #4 severe malnutrition-nutritional services is seeing patient #5 hypertension #6 hyperlipidemia Code Visit Inpatient E&M: 36688 Subs Hosp L2
--- NOTE | 2018-02-11 17:57 | PN_ITS ---
Patient Problems: Active and Suspected Problems (Last Updated 11/10/17 @ 07:31 by Pennie Espinoza ) Severe abdominal pain; ca pancreatic (Acute) Chemotherapeutic side effect (Acute) Subjective: Patient was seen and examined today, I briefly talked about his medical care with oncology today. Patient went almost the entire day so far without using IV Dilaudid but late this afternoon he had to be given IV Dilaudid due to his abdominal pain. Patient was reluctant to go home and I felt that it was better to keep the patient here and increase the patient's methadone, oncology increase the patient's Neurontin today. - Physical Exam General: Alert, Oriented x3, Cooperative, - - Patient is in moderate distress due to abdominal pain HEENT: Atraumatic, PERRLA, EOMI, Normocephalic Oral: Moist Mucosa Neck: Supple, No Nuchal Rigidity, Trachea Midline, Thyroid Normal Size and Texture Lungs: Clear to auscultation, Normal air movement, No rhonchi, No wheeze, No rales Cardiovascular: Regular rate, Regular Rhythm, Normal S1, Normal S2, No murmurs, PMI Normal, No rub noted, No Gallop Abdomen: Tender - Diffuse abdominal tenderness is noted chiefly over the mid abdomen Extremities: No clubbing, No cyanosis, No edema Skin: No rashes, No breakdown Neurological: Cranial nerves II-XII grossly intact, Neuro grossly intact, Sensory exam intact to light touch and pain, Coordination normal Psych/Mental Status: Appropriate, Alert and oriented to time, place, person, mood and affect Vital Signs Temp Pulse Resp BP Pulse Ox 98.2 F 106 H 20 H 121/87 H 98 02/11/18 08:41 02/11/18 08:50 02/11/18 08:41 02/11/18 08:41 02/11/18 08:41 Oxygen Delivery Method Room Air Weight: 85.275 kg Body Mass Index (BMI) 26.3 Intake and Output for Last 24 Hours 02/09/18 02/10/18 02/11/18 23:59 23:59 23:59 Intake Total 8515 / 4268 2812 / 2812 2602 / 2602 Balance 4268 / 4268 2812 / 2812 2602 / 2602 Medical Necessity - Tobacco Use Smoking Status: Former smoker Tobacco Use: Pipe Assessment/Plan All Active Problems (Last Updated 11/10/17 @ 07:31 by Pennie Espinoza) Severe abdominal pain; ca pancreatic (Acute) Chemotherapeutic side effect (Acute) #1 uncontrolled abdominal pain secondary to metastatic pancreatic cancer-patient 's methadone will be increased, his Neurontin was increased by oncology, I will reevaluate patient tomorrow #2 nausea and vomiting-resolved at this time, possibly secondary to severe pain from pancreatic cancer, continue IV fluids #3 coronary artery disease-stable at this time #4 severe malnutrition-nutritional services is seeing patient #5 hypertension #6 hyperlipidemia Code Visit Inpatient E&M: 04255 Subs Hosp L2
[2018-02-11 20:36] VITALS: BP 102/77; PULSE 94; RESP 18; TEMP 36.6; O2SAT 98
[2018-02-11] MEDS: traZODone 100 MG Tablet PO (22:43)
[2018-02-11] MEDS: Pravastatin 80 MG Tablet PO (22:44)
[2018-02-11 22:50] VITALS: BP 118/83; PULSE 94; RESP 16; O2SAT 98
[2018-02-12] MEDS: 0.9% Normal Saline 1,000 ML 125 ML IV ×2 (01:11→08:26)
[2018-02-12] MEDS: HYDROmorphone 1 MG/ML Syringe IV ×2 (01:43→06:15)
[2018-02-12] MEDS: LORazepam 2 MG/ML Syringe 0.5 MG IV (01:50)
[2018-02-12 01:56] VITALS: BP 108/66; PULSE 69; RESP 16; TEMP 36.8; O2SAT 95
[2018-02-12 06:09] VITALS: BP 114/60; PULSE 78; RESP 18; TEMP 37; O2SAT 96
[2018-02-12 08:09] VITALS: BP 146/72; PULSE 88; RESP 16; TEMP 36.8; O2SAT 97
[2018-02-12 08:16] VITALS: RESP 16
[2018-02-12] MEDS: Gabapentin 600 MG Tablet PO ×2 (08:24→11:32)
[2018-02-12 11:31] VITALS: PULSE 88
[2018-02-12] MEDS: Metoprolol Tartrate 25 MG Tablet PO (11:31)
[2018-02-12] MEDS: Venlafaxine XR 150 MG Capsule 300 MG PO (11:31)
[2018-02-12] MEDS: Famotidine 20 MG Tablet PO (11:31)
[2018-02-12] MEDS: Lisinopril 5 MG Tablet PO (11:32)
[2018-02-12] MEDS: Senna/Docusate Sodium 1 Tablet 2 TABLET PO (11:32)
--- NOTE | 2018-02-12 11:39 | PCM.CONS.P ---
History of Present Illness Date of Consult: 02/12/18 Reason for Consult: abdominal pain Requesting physician: Yulisa Primary care physician: Mahendra Mendez - History of Present Illness Aman is a 62 year old male with Stage IV pancreatic cancer, diagnosed 12/29/17. He was evaluated but was not a surgical candidate due to involvement of peritoneum and vessels. He underwent one dose of chemo on 01/31 but did poorly with many side effects. His initial symptoms were pain, daniel. after eating, and some weight loss. He continues to have epigastric abdominal pain that radiates across the RUQ/LUQ and sometimes to the back. Pain is constant but increases after eating and sometimes for no reason. Appetite was decreased even before chemo. After chemo, he had nausea, vomiting, altered sense of smell, dysguesia, and increased pain. He had minimal intake due to side effects. He required IV fluids 3 times (twice in ER and once at Dr. Falcon's office). He was admitted to [facility] 02/07 with intractable abdominal pain. Unfortunately his home dose of methadone was not correctly listed so he was inadvertantly decreased from methadone 20mg TID to methadone 5mg BID upon admission. Pain continued to increase. He was requiring IV Dilaudid for partial relief of pain. Dr. Yoder was consulted and performed a celiac plexus block on 02/09. Pain did not seem to change much until this morning, it is still present but is significantly better. He was able to eat a fair sized breakfast - this is the first he has had more than a few bites of food at a time since prior to the chemo. He has had issues with constipation. Weight is down 30 lbs since prior to diagnosis. He has had a hard time taking pills, would like to decrease the number of pills he takes if possible. He has a history of back issues and surgery causing chronic back pain, is on Neurontin for that. Back pain has been well controlled since he has had to start the methadone and Dilaudid for the cancer pain. Also on several cardiac meds, he had a stent placed 5 yrs ago, no history of [place]. ASA and Plavix were stopped in December at time of diagnosis but he is still on metoprolol, lisinopril, and pravastatin. He takes trazodone for sleep and feels it helps, and Effexor for nerves and feels this is helpful as well. Patient Problems: Chronic Problems (Last Updated 11/10/17 @ 07:31 by Pennie Espinoza) Cancer of pancreas (Chronic) Pseudopancreatic cyst (Chronic) Hypertension (Chronic) Presence of stent in coronary artery (Chronic ~07/07/12) PTCA/EDU of the prox LCX 07/07/12 Hyperlipidemia (Chronic) H/O percutaneous transluminal coronary angioplasty (Chronic) PTCA/EDU of the prox LCX 07/07/12 Atherosclerotic heart disease of [place] coronary artery without angina pectoris (Chronic) PTCA/EDU of the prox LCX 07/07/12 Home Medications: Ambulatory Orders Medication Instructions Recorded lisinopril 5 mg tablet 5 mg PO QDAY 11/10/17 metoprolol tartrate 25 mg tablet 25 mg PO DAILY tab 11/10/17 pravastatin 80 mg tablet 80 mg PO QHS 11/10/17 testosterone 20.25 mg/1.25 gram 2 pump TOPICAL QAM 11/10/17 (1.62 %) transdermal gel pump venlafaxine ER 150 mg 300 mg PO QDAY 11/10/17 capsule,extended release 24 hr HYDROmorphone tablet [Dilaudid] 2 mg PO Q3H PRN PRN 02/05/18 Methadone HCl [(None)] 10 mg PO DAILY 02/05/18 Gabapentin [Neurontin] 400 mg PO BID 02/07/18 Haloperidol [Haldol] 1 mg PO Q8H PRN PRN 02/07/18 Lactulose 30 ml PO BID 02/07/18 Nitroglycerin [Nitrolingual Desha] 0.4 mg SL PRN PRN 02/07/18 Trazodone HCl 100 mg PO QHS 02/07/18 Allergies No Known Allergies Allergy (Verified 02/07/18 10:13) Paternal Family History: Family History (Last Reviewed 11/13/17 @ 10:37 by Joann Acosta) Father Myocardial infarction, Onset Age: 49 CAD (coronary artery disease) Hx of CABG Mother Hypertension Uncle Myocardial infarction, Onset Age: 50 Brother Diabetes History Items: No pertinent history - Social History Lives: Spouse/ Significant Other - Zora, - - 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 Denies: Fever, Night Sweats Eyes: Denies: Blurred vision HEENT: Reports: Difficulty Swallowing - daniel pills, more a fullness than a mechanical difficulty swallowing. Denies: Difficulty Hearing Cardiovascular: Denies: Chest Pain, Edema Respiratory: Denies: Cough, Shortness of Breath Gastrointestinal: Reports: Abdominal Pain, Constipation, Diarrhea, Dyspepsia, Nausea, Vomiting Genitourinary: Denies: Dysuria Musculoskeletal: Denies: Back Pain Skin: Denies: Jaundice Neurological: Reports: Balance problems - due to generalized weakness Psychiatric: Reports: Anxiety Endocrine: Denies: Polydipsia, Polyuria Hematologic/ Lymphatic: Denies: Anemia Physical Exam Palliative Performance Scale %: 50 General: Alert, Oriented x3, Cooperative Oral: Moist Mucosa, No Gingival or Mucosal Lesions/ Ulcerations Lungs: Clear to auscultation, Normal air movement Cardiovascular: Regular rate, Regular Rhythm, No murmurs Abdomen: Bowel Sounds Present, Soft, Tender - with epigastric palpation Extremities: No edema Skin: No rashes Neurological: Cranial nerves II-XII grossly intact Psych/Mental Status: Normal Affect Objective: Vital Signs Temp Pulse Resp BP Pulse Ox 98.3 F 88 16 146/72 H 97 02/12/18 08:09 02/12/18 11:31 02/12/18 08:16 02/12/18 08:09 02/12/18 08:09 Oxygen Delivery Method Room Air Weight: 85.275 kg Body Mass Index (BMI) 26.3 Intake and Output for Last 24 Hours 02/10/18 02/11/18 02/12/18 23:59 23:59 23:59 Intake Total 2812 / 2812 2602 / 2602 2438 / 2438 Balance 2812 / 2812 2602 / 2602 2438 / 2438 Assessment/Plan All Active Problems (Last Updated 11/10/17 @ 07:31 by Pennie Espinoza) Severe abdominal pain; ca pancreatic (Acute) Chemotherapeutic side effect (Acute) 62 yr old male with Stage IV pancreatic cancer, epigastric abdominal pain, anorexia, constipation (and sometimes diarrhea), N/V 1. Abdominal pain - it seems the celiac block has at least been partially effective. Given the flare of symptoms with oral intake, suspect some pancreatic exocrine insufficiency - plan keep methadone 15mg TID, D/C PO oxycodone and IV Dilaudid and restart PO Dilaudid for breakthrough, add Creon with meals and snacks. Other considerations for future if pain is not managed with these changes would include low dose of dexamethasone (he had insomnia with steroids in past) or CADD pump 2. Constipation - would continue both Senna and lactulose for now, once we know what bowel are doing after adding Creon, may consider attempting to D/C lactulose (he doesn't like it) and managing with Senna +/- Miralax 3. Nausea/vomiting - likely chemo related, has haloperidol and Zofran at home as prn's in case needed 4. Anorexia - may have improvement with better pain control and addition of Creon 5. Anxiety - continue Effexor. Change from IV lorazepam to PO lorazepam PRN 6. Low back pain - well controlled with opioids that he has required for the pancreatic cancer. Doubt neurontin is adding much at this point, ok to stop it in line with his goal of stopping unnecessary meds. Patient to restart if back pain returns 7. CAD - stay off ASA, Plavix. Would D/C pravastatin upon discharge home, risks likely outweigh benefits given his decreased intake. Continue lisinopril and metoprolol for now, considering stopping one once home if BP allows 8. Advanced directives - planning to complete POA paperwork for daughter Mercedes to be POA. Discussed code status, he wishes to be DNR-Arrest. Discussed hospice vs. palliative care. Since he does not wish to pursue further chemotherapy, he would qualify for hospice services if he desires. He would like hospice, plan admission once he returns home upon discharge from hospice Time 9:40 - 11:20 spent at bedside, over half of visit education & counseling of patient, , daughter Mercedes. Topics included prognosis, hospice vs palliative, options for pain management (see #1 above) and risks/benefits of each, approach to intake with anorexia, nausea, etc., management of anxiety, code status options.
[2018-02-12] MEDS: HYDROmorphone 2 MG TABLET 4 MG PO (12:18)
[2018-02-12 13:28] VITALS: BP 122/77; PULSE 69; RESP 16; TEMP 36.9; O2SAT 99
--- NOTE | 2018-02-12 13:46 | PCM.DC ---
- Discharge Diagnoses Current Active Problems: Current Active and Chronic Problems (Last Updated 11/10/17 @ 07:31 by Pennie Espinoza) Cancer of pancreas (Chronic) Severe abdominal pain; ca pancreatic (Acute) Chemotherapeutic side effect (Acute) You will use the following diet at home:: No restrictions Your food should be the consistency of: Regular Your liquids should be the consistency of: Regular/Thin Discharge Activity: Return to Normal Activity Weight Bearing Status: Full weight bearing Allergies/Adverse Reactions: Allergies No Known Allergies Allergy (Verified 02/07/18 10:13) Medications to take at Discharge lisinopril 5 mg tablet 5 mg PO QDAY 11/10/17 metoprolol tartrate 25 mg tablet 25 mg PO DAILY tab 11/10/17 venlafaxine ER 150 mg capsule,extended release 24 hr 300 mg PO QDAY 11/10/17 HYDROmorphone tablet [Dilaudid] 2 mg PO Q3H PRN PRN 02/05/18 Gabapentin [Neurontin] 400 mg PO BID 02/07/18 Haloperidol [Haldol] 1 mg PO Q8H PRN PRN 02/07/18 Lactulose 30 ml PO BID 02/07/18 Nitroglycerin [Nitrolingual Malone] 0.4 mg SL PRN PRN 02/07/18 Trazodone HCl 100 mg PO QHS 02/07/18 Lorazepam [Ativan] 0.5 mg PO Q6H PRN PRN tablet 02/12/18 Methadone HCl 10 mg PO TID 1 Days #1 tablet 02/12/18 Senna/Docusate Sodium [Senokot-S] 2 tablet PO BID tablet 02/12/18 lipase/protease/amylase [Creon DR 12,000 Unit Capsule] 1 capsule PO TID PRN capsule 02/12/18 lipase/protease/amylase [Creon DR 12,000 Unit Capsule] 3 capsule PO TIDCM capsule 02/12/18 The following prescriptions were given: Methadone HCl 10 mg PO TID 1 Days #1 tablet Primary Care Physician: Mahendra Mendez MD [Primary Care Provider] - Test Results: Test results from this visit will be discussed in further detail at your follow-up appointment, if applicable. Please Follow Up With: pallative care/hospice When: as directed
[2018-02-12] MEDS: 0.9% NaCl Peripheral Flush Adult/Peds IV (14:38)
--- NOTE | 2018-02-13 14:37 | CASEMGMT ---
VANESSA BISHOP DC Phone Call. DC Date: 02/13/18 LACE 3 Disposition: Home Call to phone listed. No Answer. Message left with call back information if pt has questions re: dc instructions, f/u or medications. [place] RN ACM
--- NOTE | 2018-02-14 10:38 | PCM.DC.SUM ---
Discharge Date and Diagnosis Date of Admission: 02/07/18 Date of Discharge: 02/12/18 - Primary Discharge Diagnosis 1 uncontrolled abdominal pain secondary to metastatic pancreatic cancer #2 nausea and vomiting- secondary to severe pain from pancreatic cancer and recent chemotherapy #3 coronary artery disease-stable at this time #4 Severe protein and caloric malnutrition #5 hypertension #6 hyperlipidemia #7 coronary artery disease - Secondary Discharge Diagnosis Chronic Problems (Last Updated 11/10/17 @ 07:31 by Pennie Espinoza) Cancer of pancreas (Chronic) Pseudopancreatic cyst (Chronic) Hypertension (Chronic) Presence of stent in coronary artery (Chronic ~07/07/12) PTCA/EDU of the prox LCX 07/07/12 Hyperlipidemia (Chronic) H/O percutaneous transluminal coronary angioplasty (Chronic) PTCA/EDU of the prox LCX 07/07/12 Atherosclerotic heart disease of [place] coronary artery without angina pectoris (Chronic) PTCA/EDU of the prox LCX 07/07/12 Hospital Course and Treatment Operations: None Procedures: - - Celiac plexus block Summary of Care Provided: The patient is a 62 year old M who was seen in the emergency room at [facility] with chief complaint of severe abdominal pain with episodic vomiting. Patient had chemotherapy for metastatic pancreatic cancer approximately a week prior. Labs were obtained in the emergency room, CBC showed a white count of 10.4, chemistries were unremarkable, LFTs were normal. Lipase was 278. Lactic acid was 0.9. CT scan of the abdomen and pelvis showed a suspected pancreatic pseudocyst and a pancreatic mass with moderate amount of stool throughout the colon. Patient was given Dilaudid and Zofran in the emergency room as well as IV fluids, due to intractable abdominal pain he was admitted to [place] [address]. Patient was seen in consultation by pain management who performed a celiac plexus block, patient received IV fluids during his hospital stay and he was seen by his oncologist. Patient decided to activate hospice and did not want any further treatment for his pancreatic cancer, on 02/12/18, he was seen by hospice. On that date, he was seen and examined by me and felt to be stable for discharge home, patient had less pain at the time of discharge and will follow up with hospice as an outpatient. Discharge Activity: Return to Normal Activity Weight Bearing Status: Full weight bearing Home Medications: Medications to take at Discharge lisinopril 5 mg tablet 5 mg PO QDAY 11/10/17 metoprolol tartrate 25 mg tablet 25 mg PO DAILY tab 11/10/17 venlafaxine ER 150 mg capsule,extended release 24 hr 300 mg PO QDAY 11/10/17 HYDROmorphone tablet [Dilaudid] 2 mg PO Q3H PRN PRN 02/05/18 Gabapentin [Neurontin] 400 mg PO BID 02/07/18 Haloperidol [Haldol] 1 mg PO Q8H PRN PRN 02/07/18 Lactulose 30 ml PO BID 02/07/18 Nitroglycerin [Nitrolingual [place]] 0.4 mg SL PRN PRN 02/07/18 Trazodone HCl 100 mg PO QHS 02/07/18 Lorazepam [Ativan] 0.5 mg PO Q6H PRN PRN tablet 02/12/18 Methadone HCl 10 mg PO TID 1 Days #1 tablet 02/12/18 Senna/Docusate Sodium [Senokot-S] 2 tablet PO BID tablet 02/12/18 lipase/protease/amylase [Creon DR 12,000 Unit Capsule] 1 capsule PO TID PRN capsule 02/12/18 lipase/protease/amylase [Creon DR 12,000 Unit Capsule] 3 capsule PO TIDCM capsule 02/12/18 Following Prescrptions Were Given to Patient: Methadone HCl 10 mg PO TID 1 Days #1 tablet Primary Care Physician: Mahendra Mendez MD [Primary Care Provider] - Please Follow Up With: pallative care/hospice When: as directed Disposition: Home with Hospice Minutes spent on discharge:: 32 Patient Condition:: Stable Medical Necessity - Tobacco Use Smoking Status: Former smoker Tobacco Use: Pipe Meaningful Use Info Meaningful Use Diagnoses (Choose all that apply): None applicable Code Visit Inpatient E&M: 65876 Disch Hosp
--- NOTE | 2018-02-14 10:44 | DS.PCM_ITS ---
Discharge Date and Diagnosis Date of Admission: 02/07/18 Date of Discharge: 02/12/18 - Primary Discharge Diagnosis 1 uncontrolled abdominal pain secondary to metastatic pancreatic cancer #2 nausea and vomiting- secondary to severe pain from pancreatic cancer and recent chemotherapy #3 coronary artery disease-stable at this time #4 Severe protein and caloric malnutrition #5 hypertension #6 hyperlipidemia #7 coronary artery disease - Secondary Discharge Diagnosis Chronic Problems (Last Updated 11/10/17 @ 07:31 by Pennie Espinoza) Cancer of pancreas (Chronic) Pseudopancreatic cyst (Chronic) Hypertension (Chronic) Presence of stent in coronary artery (Chronic ~07/07/12) PTCA/EDU of the prox LCX 07/07/12 Hyperlipidemia (Chronic) H/O percutaneous transluminal coronary angioplasty (Chronic) PTCA/EDU of the prox LCX 07/07/12 Atherosclerotic heart disease of [place] coronary artery without angina pectoris (Chronic) PTCA/EDU of the prox LCX 07/07/12 Hospital Course and Treatment Operations: None Procedures: - - Celiac plexus block Summary of Care Provided: The patient is a 62 year old M who was seen in the emergency room at [facility] with chief complaint of severe abdominal pain with episodic vomiting. Patient had chemotherapy for metastatic pancreatic cancer approximately a week prior. Labs were obtained in the emergency room, CBC showed a white count of 10.4, chemistries were unremarkable, LFTs were normal. Lipase was 278. Lactic acid was 0.9. CT scan of the abdomen and pelvis showed a suspected pancreatic pseudocyst and a pancreatic mass with moderate amount of stool throughout the colon. Patient was given Dilaudid and Zofran in the emergency room as well as IV fluids, due to intractable abdominal pain he was admitted to [place] [address]. Patient was seen in consultation by pain management who performed a celiac plexus block, patient received IV fluids during his hospital stay and he was seen by his oncologist. Patient decided to activate hospice and did not want any further treatment for his pancreatic cancer, on 02/12/18, he was seen by hospice. On that date, he was seen and examined by me and felt to be stable for discharge home, patient had less pain at the time of discharge and will follow up with hospice as an outpatient. Discharge Activity: Return to Normal Activity Weight Bearing Status: Full weight bearing Home Medications: Medications to take at Discharge lisinopril 5 mg tablet 5 mg PO QDAY 11/10/17 metoprolol tartrate 25 mg tablet 25 mg PO DAILY tab 11/10/17 venlafaxine ER 150 mg capsule,extended release 24 hr 300 mg PO QDAY 11/10/17 HYDROmorphone tablet [Dilaudid] 2 mg PO Q3H PRN PRN 02/05/18 Gabapentin [Neurontin] 400 mg PO BID 02/07/18 Haloperidol [Haldol] 1 mg PO Q8H PRN PRN 02/07/18 Lactulose 30 ml PO BID 02/07/18 Nitroglycerin [Nitrolingual [place]] 0.4 mg SL PRN PRN 02/07/18 Trazodone HCl 100 mg PO QHS 02/07/18 Lorazepam [Ativan] 0.5 mg PO Q6H PRN PRN tablet 02/12/18 Methadone HCl 10 mg PO TID 1 Days #1 tablet 02/12/18 Senna/Docusate Sodium [Senokot-S] 2 tablet PO BID tablet 02/12/18 lipase/protease/amylase [Creon DR 12,000 Unit Capsule] 1 capsule PO TID PRN capsule 02/12/18 lipase/protease/amylase [Creon DR 12,000 Unit Capsule] 3 capsule PO TIDCM capsule 02/12/18 Following Prescrptions Were Given to Patient: Methadone HCl 10 mg PO TID 1 Days #1 tablet Primary Care Physician: Mahendra Mendez MD [Primary Care Provider] - Please Follow Up With: pallative care/hospice When: as directed Disposition: Home with Hospice Minutes spent on discharge:: 32 Patient Condition:: Stable Medical Necessity - Tobacco Use Smoking Status: Former smoker Tobacco Use: Pipe Meaningful Use Info Meaningful Use Diagnoses (Choose all that apply): None applicable Code Visit Inpatient E&M: 34587 Disch Hosp
== END 2018-02-12 15:31 | disposition home or self-care (01) | DRG 947 ==
LOC: ED 10:51 → MS2 14:10
PROVIDERS: Anesthesiology Pain Medicine; Admitting Provider Internal Medicine; Emergency Provider Emergency Medicine; Family Provider Family Medicine; PCP Family Medicine; Visit Provider Internal Medicine
PROC: 3E0T3BZ Introduction of Anesthetic Agent into Peripheral Nerves and Plexi, Percutaneous Approach (ICD-10-PCS; CPT 64530; principal; 2018-02-09 16:00)
DX: G89.3 Neoplasm related pain (acute) (chronic) (principal); E43 Unspecified severe protein-calorie malnutrition; E87.1 Hypo-osmolality and hyponatremia; C25.9 Malignant neoplasm of pancreas, unspecified; C79.9 Secondary malignant neoplasm of unspecified site; R10.9 Unspecified abdominal pain; R11.2 Nausea with vomiting, unspecified; T45.1X5A Adverse effect of antineoplastic and immunosuppressive drugs, initial encounter; E78.5 Hyperlipidemia, unspecified; I10 Essential (primary) hypertension; I25.10 Atherosclerotic heart disease of native coronary artery without angina pectoris; Z68.26 Body mass index [BMI] 26.0-26.9, adult; Z87.891 Personal history of nicotine dependence; Z95.5 Presence of coronary angioplasty implant and graft; K59.00 Constipation, unspecified; F41.9 Anxiety disorder, unspecified; Z66 Do not resuscitate; Z51.5 Encounter for palliative care
CPT/HCPCS: 36591; 64483; 71045; 74176; 77003; 80048; 80053; 81001; 83605; 83690; 85025; 93005; 97802; 99281; J7030; A4216; J2405; J3490; Q9967

== ENCOUNTER 2018-03-19 10:52 | Day surgery (SDC) | payer BC, SELFPAY ==
[2018-03-19] VITALS (10 sets, daily range): BP systolic 98–113; BP diastolic 72–87; PULSE 77–84; RESP 16–20; TEMP 36.2–36.9; O2SAT 93–97; BMI 25.9
--- NOTE | 2018-03-19 12:05 | RAD_ITS ---
PROCEDURE: Celiac plexus block. DATE OF EXAMINATION: March 19, 2018. INDICATION: Male, 62 years old. Pancreatic cancer. FLUOROSCOPY TIME (if supplied): (0:45) minutes/seconds. 9 fluoroscopic images. Fluoroscopic guidance for celiac plexus block. RAD/Fluor Guidance for Spine Inj IMPRESSION: Fluoroscopic guidance for celiac plexus block. Electronically Signed: Keshav Roy MD at 13:38 EDT Tel [phone], Service support ,
== END 2018-03-19 14:00 | disposition home or self-care (01) ==
LOC: SDC 10:56 → AC 10:57
PROVIDERS: Family Provider Family Medicine; PCP Family Medicine; Referring Provider Anesthesiology Pain Medicine; Visit Provider Anesthesiology Pain Medicine
PROC: 3E0T3BZ Introduction of Anesthetic Agent into Peripheral Nerves and Plexi, Percutaneous Approach (ICD-10-PCS; CPT 64530; principal; 2018-03-19 12:00)
DX: G89.3 Neoplasm related pain (acute) (chronic) (principal); C25.9 Malignant neoplasm of pancreas, unspecified; E78.00 Pure hypercholesterolemia, unspecified; I51.9 Heart disease, unspecified; M19.90 Unspecified osteoarthritis, unspecified site; F32.9 Major depressive disorder, single episode, unspecified; F41.9 Anxiety disorder, unspecified; F17.210 Nicotine dependence, cigarettes, uncomplicated; Z79.891 Long term (current) use of opiate analgesic; Z79.899 Other long term (current) drug therapy; Z95.5 Presence of coronary angioplasty implant and graft
CPT/HCPCS: 01992; 64680; 64483; 77003; J7120; J2405; Q9967